=== PATIENT | male | born 1950 | race Caucasian/White ===

== ENCOUNTER → 2017-09-05 | Outpatient (CLI) | payer MEDICARE ==
[2017-09-05 14:45] LABS: ADD MAN DIFF? NO
[2017-09-05 14:53] LABS: BASO # 0.1 x10^3/uL (0.0-0.2); BASO % 1 % (0-3); EOS # 0.2 x10^3/uL (0.0-0.7); EOS % 2 % (0-3); HEMATOCRIT 44.2 % (39.0-53.0); HEMOGLOBIN 14.8 g/dL (13.0-17.5); LYMPH # 1.7 x10^3/uL (1.0-4.8); LYMPH % 21 % (24-48); MEAN CORPUSCULAR HEMOGLOBIN 32 pg (25-35); MEAN CORPUSCULAR HGB CONC 33 g/dL (31-37); MEAN CORPUSCULAR VOLUME 97 fL (79-100); MONO # 0.7 x10^3/uL (0.0-1.1); MONO % 9 % (0-9); NEUT # 5.4 x10^3uL (1.8-7.7); NEUT % 67 % (31-73); PLATELET COUNT 173 x10^3/uL (140-400); RED BLOOD COUNT 4.55 x10^6/uL (4.30-5.70); RED CELL DISTRIBUTION WIDTH 13.1 % (11.5-14.5); WHITE BLOOD COUNT 8.1 x10^3/uL (4.0-11.0)
[2017-09-05 14:55] LABS: BILIRUBIN,URINE NEGATIVE (NEG); CLARITY,URINE CLEAR; COLOR,URINE YELLOW; GLUCOSE,URINE NEGATIVE (NEG); NITRITE,URINE NEGATIVE (NEG); PROTEIN,URINE NEGATIVE (NEG-TRACE); UROBILINOGEN,URINE 0.2 mg/dL (0.2 mg/dL)
[2017-09-05 15:10] LABS: BACTERIA,URINE 0 /HPF (0-FEW); RBC,URINE 0 /HPF (0-2); SQUAMOUS EPITHELIAL CELL,UR FEW /LPF
[2017-09-05 15:17] LABS: ALBUMIN 3.5 g/dL (3.4-5.0); ALBUMIN/GLOBULIN RATIO 1.1 (1.0-1.7); ALK PHOS 96 U/L (46-116); ALT (SGPT) 23 U/L (16-63); ANION GAP 8 (6-14); AST (SGOT) 20 U/L (15-37); BLOOD UREA NITROGEN 13 mg/dL (8-26); BUN/CREATININE RATIO 14 (6-20); CALCIUM 8.7 mg/dL (8.5-10.1); CARBON DIOXIDE 27 mmol/L (21-32); CHLORIDE 107 mmol/L (98-107); CREATININE 0.9 mg/dL (0.7-1.3); GFR 84.7; GLUCOSE 114 mg/dL (70-99); POTASSIUM 4.4 mmol/L (3.5-5.1); SODIUM 142 mmol/L (136-145); TOTAL BILIRUBIN 0.3 mg/dL (0.2-1.0); TOTAL PROTEIN 6.7 g/dL (6.4-8.2)
[2017-09-05 15:18] LABS: PARTIAL THROMBOPLASTIN TIME 34 SEC (24-38); PROTHROMBIN TIME PATIENT 12.9 SEC (11.7-14.0)
[2017-09-05 15:35] LABS: ALBUMIN 3.5 g/dL (3.4-5.0); ANION GAP 9 (6-14); BLOOD UREA NITROGEN 13 mg/dL (8-26); CALCIUM 9.1 mg/dL (8.5-10.1); CARBON DIOXIDE 28 mmol/L (21-32); CHLORIDE 106 mmol/L (98-107); CREATININE 0.9 mg/dL (0.7-1.3); GFR 84.7; GLUCOSE 117 mg/dL (70-99); POTASSIUM 4.4 mmol/L (3.5-5.1); SODIUM 143 mmol/L (136-145)
[2017-09-05 16:19] LABS: SEDIMENTATION RATE 2 (0-15)
[2017-09-06 05:18] LABS: MRSA BY PCR Negative (Negative)
== END | disposition home or self-care (01) ==
LOC: SURGPAT 13:29
DX: Z01.818 Encounter for other preprocedural examination (principal); I45.10 Unspecified right bundle-branch block; R94.31 Abnormal electrocardiogram [ECG] [EKG]
CPT/HCPCS: 36415; 71046; 80048; 80053; 81001; 82040; 82306; 85025; 85610; 85651; 85730; 87086; 87641; 93005

== ENCOUNTER 2017-09-26 06:46 | Inpatient (IN) | payer MEDICARE ==
[~2017-09-26 06:46] MED LIST: CELECOXIB 200 MG CAPSULE. PO
[2017-09-26] MEDS ORDERED: VANCOMYCIN 1 GM VIAL. (06:56)
[2017-09-26] MEDS ORDERED: TOBRAMYCIN POWDER 1.2 GM VIAL. (06:56)
[2017-09-26] MEDS ORDERED: fentaNYL PF VIAL 100 MCG/2 ML VIAL IV ×3 (07:00→13:15)
[2017-09-26] MEDS ORDERED: ONDANSETRON PF 4 MG/2 ML VIAL. IV (07:00)
[2017-09-26] MEDS ORDERED: LIDOCAINE 1% PF 2 ML VIAL. ID (07:00)
[2017-09-26] MEDS: IV RINGERS,LACTATED 1000ML 1,000 ML IV (08:02)
[2017-09-26] MEDS: HYDROcodone/APAP 7.5/325MG 1 TAB TABLET PO (08:05)
[2017-09-26] MEDS ORDERED: FAMOTIDINE 20 MG/2 ML VIAL (08:55)
[2017-09-26] MEDS ORDERED: DEXAMETHASONE SOD PHOS 20 MG/5 ML VIAL. (08:55)
[2017-09-26] MEDS ORDERED: KETOROLAC 30 MG/ML INJ FOR OR. INJ (08:55)
[2017-09-26] MEDS ORDERED: LIDOCAINE 2% PF Vial for OR 5 ML VIAL. (08:55)
[2017-09-26] MEDS ORDERED: ONDANSETRON PF 4 MG/2 ML VIAL. (08:55)
[2017-09-26] MEDS ORDERED: PROPOFOL 20 ML IV (08:55)
[2017-09-26] MEDS ORDERED: NEOSTIGMINE METHYLSULFATE 5 MG/5 ML SYRINGE. ×2 (09:10→12:31)
[2017-09-26] MEDS ORDERED: GLYCOPYRROLATE 1 MG/5 ML VIAL. ×2 (09:10→12:30)
[2017-09-26] MEDS ORDERED: fentaNYL PF VIAL 100 MCG/2 ML VIAL ×3 (09:27→13:19)
[2017-09-26] MEDS ORDERED: ROCURONIUM 50 MG/5 ML VIAL. (09:27)
[2017-09-26] MEDS ORDERED: MIDAZOLAM HCL/PF 2 MG/2 ML VIAL. (09:28)
[2017-09-26] MEDS ORDERED: SUCCINYLCHOLINE 200 MG/10 ML VIAL. (11:10)
[2017-09-26] MEDS: TRANEXAMIC ACID 1,000 MG in IV NS 50ML -- 1ST BAG INJ (11:24)
[2017-09-26] MEDS ORDERED: ePHEDrine PF IN SALINE 50 MG/5 ML DISP.SYRIN IV (11:26)
[2017-09-26] MEDS: MORPHINE SULFATE 5 MG, KETOROLAC 30 MG, ROPIVacaine 0.5% PF 60 ML, EPINEPHrine 0.5 MG i... INT ART (11:34)
[2017-09-26] MEDS: TOBRAMYCIN POWDER 1.2 GM VIAL. (11:34)
[2017-09-26] MEDS: VANCOMYCIN 1 GM VIAL. (11:34)
[2017-09-26] MEDS ORDERED: hydrALAZINE 20 MG/ML VIAL. (11:39)
[2017-09-26] MEDS: TRANEXAMIC ACID 1,000 MG in IV NS 50ML -- 2ND BAG INJ (12:26)
[2017-09-26] MEDS ORDERED: DESFLURANE > 120 MINUTES IH (12:55)
[2017-09-26] MEDS ORDERED: traMADol 50 MG TABLET PO ×2 (13:15)
[2017-09-26] MEDS ORDERED: DEXTROSE 50% 25 GM / 50ML DISP.SYRIN. IV (13:15)
[2017-09-26] MEDS ORDERED: METOCLOPRAMIDE HCL 10 MG/2 ML VIAL. IV (13:15)
[2017-09-26] MEDS ORDERED: oxyCODONE/APAP 5/325 1 TAB TABLET PO (13:15)
[2017-09-26] MEDS ORDERED: MORPHINE SULFATE 4 MG/ML DISP.SYRIN. IV ×2 (13:15)
[2017-09-26] MEDS ORDERED: PROCHLORPERAZINE 10 MG/2 ML VIAL. IV (13:15)
[2017-09-26] MEDS ORDERED: MORPHINE SULFATE 10 MG/ML VIAL. IV (13:15)
[2017-09-26] MEDS ORDERED: PROCHLORPERAZINE 5 MG TABLET. PO (13:15)
[2017-09-26] MEDS ORDERED: CALCIUM CARBONATE 500 MG TAB.CHEW PO (13:15)
[2017-09-26] MEDS ORDERED: 0.9 % SODIUM CHLORIDE 10 ML DISP.SYRIN. IV (13:15)
[2017-09-26] MEDS ORDERED: diphenhydrAMINE 50 MG/ML VIAL IV (13:15)
[2017-09-26] MEDS ORDERED: HYDROcodone/APAP 7.5/325MG 1 TAB TABLET PO (13:15)
[2017-09-26] MEDS ORDERED: ACETAMINOPHEN 325 MG TABLET. PO (13:15)
[2017-09-26] MEDS: fentaNYL PF VIAL 100 MCG/2 ML VIAL IV ×2 (13:35→13:55)
[2017-09-26] MEDS: PROCHLORPERAZINE 10 MG/2 ML VIAL. IV (13:36)
[2017-09-26] MEDS: MORPHINE SULFATE 4 MG/ML DISP.SYRIN. IV ×5 (13:45→16:04)
[2017-09-26] MEDS: IV DEXTROSE 5 %-0.45 % NACL 1,000 ML IV (16:05)
[2017-09-26] MEDS ORDERED: oxyCODONE/APAP 10/325 1 TAB TABLET PO (16:15)
[2017-09-26] MEDS: FERROUS SULFATE 325 MG TABLET. PO (16:55)
[2017-09-26] MEDS: KETOROLAC 30 MG, BUPIVACAINE MPF 0.25% 20 ML, EPINEPHrine 0.5 MG in TOTAL VOLUME SYRING... INT ART (18:06)
[2017-09-26] MEDS: oxyCODONE/APAP 10/325 1 TAB TABLET PO (19:11)
[2017-09-26] MEDS: ASPIRIN ENTERIC COATED 325 MG TABLET.DR. PO (20:33)
[2017-09-26] MEDS: CELECOXIB 200 MG CAPSULE. PO (20:33)
[2017-09-26] MEDS: oxyCODONE ER 10 MG TAB.ER.12H PO ×2 (20:34→23:00)
[2017-09-26] MEDS: buPROPion SR 100 MG TABLET.SA. PO (20:35)
[2017-09-26] MEDS: rOPINIRole 0.25 MG TABLET. PO (20:35)
[2017-09-27] MEDS: IV DEXTROSE 5 %-0.45 % NACL 1,000 ML IV ×4 (01:00→23:21)
[2017-09-27] MEDS: KETOROLAC 30 MG, BUPIVACAINE MPF 0.25% 20 ML, EPINEPHrine 0.5 MG in TOTAL VOLUME SYRING... INT ART (05:55)
[2017-09-27] MEDS ORDERED: MAGNESIUM HYDROXIDE 2,400 MG/30 ML ORAL.SUSP. PO (06:00)
[2017-09-27] MEDS: PANTOPRAZOLE 40 MG TABLET.DR. PO (06:36)
[2017-09-27] MEDS: oxyCODONE/APAP 10/325 1 TAB TABLET PO ×4 (06:36→19:58)
[2017-09-27 08:22] LABS: MEAN CORPUSCULAR HEMOGLOBIN 32 pg (25-35); MEAN CORPUSCULAR HGB CONC 33 g/dL (31-37); MEAN CORPUSCULAR VOLUME 97 fL (79-100); PLATELET COUNT 130 x10^3/uL (140-400); RED BLOOD COUNT 3.69 x10^6/uL (4.30-5.70); RED CELL DISTRIBUTION WIDTH 12.9 % (11.5-14.5); WHITE BLOOD COUNT 14.6 x10^3/uL (4.0-11.0)
[2017-09-27] MEDS: MULTIVITAMIN with MINERAL TABLET. PO (08:29)
[2017-09-27] MEDS: SENNOSIDES/DOCUSATE 8.6/50MG TABLET. PO (08:29)
[2017-09-27] MEDS: ASPIRIN ENTERIC COATED 325 MG TABLET.DR. PO ×2 (08:29→19:57)
[2017-09-27] MEDS: TAMSULOSIN 0.4 MG CAP.ER.24H. PO (08:29)
[2017-09-27] MEDS: CELECOXIB 200 MG CAPSULE. PO ×2 (08:29→19:57)
[2017-09-27] MEDS: FERROUS SULFATE 325 MG TABLET. PO ×2 (08:29→17:24)
[2017-09-27] MEDS: buPROPion SR 100 MG TABLET.SA. PO ×2 (08:30→19:57)
[2017-09-27] MEDS: FLUTICASONE 50MCG/NASAL SPRAY 16GM BOTTLE. NS (08:30)
[2017-09-27] MEDS: HYDROcodone/APAP 10/325 1 TAB TABLET PO (10:32)
[2017-09-27] MEDS: oxyCODONE/APAP 7.5/325 1 TAB TABLET PO (12:57)
[2017-09-27] MEDS ORDERED: BISACODYL 10 MG SUPP.RECT. PR (16:00)
[2017-09-27] MEDS: rOPINIRole 0.25 MG TABLET. PO (19:57)
[2017-09-27] MEDS: oxyCODONE ER 10 MG TAB.ER.12H PO (21:00)
[2017-09-28] MEDS: ZOLPIDEM 5 MG TABLET. PO (00:04)
[2017-09-28] MEDS: oxyCODONE/APAP 10/325 1 TAB TABLET PO ×5 (04:09→20:11)
[2017-09-28 05:01] LABS: HEMATOCRIT 34.4 % (39.0-53.0); MEAN CORPUSCULAR HGB CONC 35 g/dL (31-37)
[2017-09-28] MEDS: CELECOXIB 200 MG CAPSULE. PO ×2 (08:24→20:11)
[2017-09-28] MEDS: oxyCODONE ER 10 MG TAB.ER.12H PO ×2 (08:24)
[2017-09-28] MEDS: PANTOPRAZOLE 40 MG TABLET.DR. PO (08:24)
[2017-09-28] MEDS: FERROUS SULFATE 325 MG TABLET. PO ×2 (08:24→16:16)
[2017-09-28] MEDS: buPROPion SR 100 MG TABLET.SA. PO ×2 (08:24→20:11)
[2017-09-28] MEDS: SENNOSIDES/DOCUSATE 8.6/50MG TABLET. PO (08:24)
[2017-09-28] MEDS: MULTIVITAMIN with MINERAL TABLET. PO (08:24)
[2017-09-28] MEDS: TAMSULOSIN 0.4 MG CAP.ER.24H. PO (08:24)
[2017-09-28] MEDS: ASPIRIN ENTERIC COATED 325 MG TABLET.DR. PO ×2 (08:25→20:12)
[2017-09-28] MEDS: FLUTICASONE 50MCG/NASAL SPRAY 16GM BOTTLE. NS (08:30)
[2017-09-28] MEDS: IV DEXTROSE 5 %-0.45 % NACL 1,000 ML IV (16:07)
[2017-09-28] MEDS: OXYBUTYNIN CHLORIDE 5 MG TABLET PO ×2 (16:16→20:11)
[2017-09-28] MEDS: rOPINIRole 0.25 MG TABLET. PO (20:11)
[2017-09-29] MEDS: oxyCODONE/APAP 10/325 1 TAB TABLET PO ×4 (00:11→12:04)
[2017-09-29] MEDS: PANTOPRAZOLE 40 MG TABLET.DR. PO (06:34)
[2017-09-29] MEDS: buPROPion SR 100 MG TABLET.SA. PO (07:57)
[2017-09-29] MEDS: MULTIVITAMIN with MINERAL TABLET. PO (07:57)
[2017-09-29] MEDS: FLUTICASONE 50MCG/NASAL SPRAY 16GM BOTTLE. NS (07:57)
[2017-09-29] MEDS: ASPIRIN ENTERIC COATED 325 MG TABLET.DR. PO (07:57)
[2017-09-29] MEDS: CELECOXIB 200 MG CAPSULE. PO (07:57)
[2017-09-29] MEDS: OXYBUTYNIN CHLORIDE 5 MG TABLET PO (07:58)
[2017-09-29] MEDS: FERROUS SULFATE 325 MG TABLET. PO (07:58)
[2017-09-29] MEDS: TAMSULOSIN 0.4 MG CAP.ER.24H. PO (07:58)
[2017-09-29] MEDS: SENNOSIDES/DOCUSATE 8.6/50MG TABLET. PO (07:58)
[2017-09-29 09:16] LABS: HEMATOCRIT 33.9 % (39.0-53.0); HEMOGLOBIN 11.5 g/dL (13.0-17.5); MEAN CORPUSCULAR HGB CONC 34 g/dL (31-37)
== END 2017-09-29 15:10 | disposition home or self-care (01) | DRG 470 ==
LOC: OPSVCIP 06:46 → 4 SOUTHEST 14:47
PROC: 0SRD0J9 Replacement of Left Knee Joint with Synthetic Substitute, Cemented, Open Approach (ICD-10-PCS; principal; 2017-09-26 09:45)
DX: M17.12 Unilateral primary osteoarthritis, left knee (principal); F32.9 Major depressive disorder, single episode, unspecified; I10 Essential (primary) hypertension; K21.9 Gastro-esophageal reflux disease without esophagitis; Z96.651 Presence of right artificial knee joint; Z82.3 Family history of stroke; Z83.3 Family history of diabetes mellitus; Z85.828 Personal history of other malignant neoplasm of skin; Z90.49 Acquired absence of other specified parts of digestive tract; Z87.891 Personal history of nicotine dependence; Z91.048 Other nonmedicinal substance allergy status
CPT/HCPCS: 36415; 73560; 85014; 85018; 85027; 86850; 86900; 86901; 94660; 97116-GP; 97150-GP; 97162-GP; 97166-GO; 97530-GP; 97535-GO; A7015; C1713; J0171; J0330; J0360; J0690; J0780; J1100; J1885; J2250; J2270; J2405; J2704; J2710; J2795; J3010; J3260; J3370; J3490; J7030; J7120; S0028

== ENCOUNTER → 2018-05-16 | Outpatient (CLI) | payer MEDICARE ==
[2017-09-29 14:33] VITALS: BP 130/71
[~2018-05-16] MED LIST changes: +ASPI-252 PO; +ASPI-482 PO; +ASPI-630 PO; +BUPR200T PO; +CELE200C PO; -CELECOXIB 200 MG CAPSULE. PO; +FERR325T14 PO; +FLUT9.9S NS; +GADOBUTROL 7.5 MMOL/7.5 ML VIAL IV ONE; +GUAI12003 PO; +MORP30TA PO; +NABU750T PO; +NORT25CA PO; +OMEP20CA9 PO; +OXYC10TA PO; +OXYC1TAB22 PO; +OXYC20TA34 PO; +OXYC40TA21 PO; +ROPI0.5T2 PO; +TAMS0.4C2 PO; +TEST75PE6 IL
--- NOTE | 2018-05-16 13:26 | KCIC ---
MRI Lumbar Spine without and with contrast History: Left sciatica, left knee pain, previous back surgeries, new onset left leg and knee pain the last 2-3 weeks Technique: Multiplanar, multi sequential pre and postcontrast MR imaging was performed of the lumbar spine. Comparison: April 05, [address] exam Findings: There is mild motion. Lumbar vertebral body stature is maintained. There is new minimal grade 1 anterior spondylolisthesis L3-4. There is again moderate to severe degenerative disc disease L5-S1 and to lesser degree at L4-5. There is minimal L3-4 degenerative disc disease greater than previously. Conus terminates at L1. There is no nodular enhancement of the conus or cauda equina, no enhancement in the intervertebral disc spaces. There is no significant marrow edema of the vertebral bodies, minimal edema associated with the left L4 superior facet articular process likely reactive/degenerative in etiology. L1-L2, L2-L3: These levels were not included on the axial images. Neural foramina and spinal canal are adequate. L3-L4: There is moderate to severe buckling of the ligamentum flavum relatively greater than previously. There is also moderate to severe facet degenerative change as seen previously, some fluid in the facet articulations. There is increased mild narrowing of the far lateral recesses bilaterally. There is very mild narrowing of the anterior left neural foramen, right neural foramen overall adequate. L4-L5: There is moderate facet hypertrophic change. There is left laminectomy defect. There is mild buckling of the ligamentum flavum on the right. There is posterior disc osteophyte complex and bulge, mild indentation upon the ventral thecal sac. There is very mild narrowing of the far right lateral recess. While near, there is no significant displacement of the descending L5 nerve roots. There is mild neural foramina compromise bilaterally. L5-S1: There is negligible disc osteophyte complex. Spinal canal is adequate. There is mild facet degenerative change. There is again mild narrowing of the left neural foramen, right neural foramen not significantly narrowed. Impression: 1. Comparing with 2006 CT exam, there is now minimal grade 1 anterior spondylolisthesis L3-4 with increased mild narrowing of the far lateral recesses bilaterally at this level. Disc osteophyte complex and bulge at L4-5 is near the descending L5 nerve roots without impingement, minimal narrowing of the right lateral recess at this level. There is mild neural foramina compromise bilaterally at L4-5 and on the left at L5-S1 and L3-4. There is again degenerative disc disease greatest at L5-S1, to lesser degree at L4-5, minimally at L3-4. Electronically signed by: Sergey Redd MD (05/16/2018 1:23 PM) [facility]
== END | disposition home or self-care (01) ==
LOC: KCIC MRI 10:02
PROVIDERS: ATTEND Orthopaedic Surgery
DX: M51.17 Intervertebral disc disorders with radiculopathy, lumbosacral region (principal); M43.16 Spondylolisthesis, lumbar region; M25.78 Osteophyte, vertebrae
CPT/HCPCS: 72158; 82565; A9585

== ENCOUNTER → 2018-06-11 | Outpatient (CLI) | payer MEDICARE ==
[~2018-06-11] MED LIST changes: +CONTRAST GIVEN. MC PRN; +DOCU-109 PO; +ESOM40CA PO; -GADOBUTROL 7.5 MMOL/7.5 ML VIAL IV ONE; +GUAI-108 PO; +IOHEXOL 180 MG/ML 10 ML VIAL. IJ ONE; +LIDOCAINE WITH 8.4% SOD BICARB 3 ML DISP.SYRIN. INJ ONE; +METH750T2 PO; +MODA100T26 PO; +OMEP20CA10 PO; -OMEP20CA9 PO; +OXYC5CAP PO
[2018-06-11 14:15] VITALS: BP 143/74
[2018-06-11 14:30] VITALS: BP 120/66
[2018-06-11 14:45] VITALS: BP 144/74
--- NOTE | 2018-06-11 14:50 | NUR ---
Discharge Pt completed post myelogram recovery, VSS, dressing dry and intact, able to tolerate PO. DC instructions reinforced. Pt escorted out per wheelchair, to drive. BETO STINSON
--- NOTE | 2018-06-14 08:43 | RAD ---
Lumbar myelogram, 06/11/2018: History: Left leg and back pain Under local anesthesia, aseptic conditions and fluoroscopic guidance a lumbar puncture was performed at the L2-3 level utilizing a 25-gauge Jacqueline spinal needle. Good clear CSF flow was obtained following which 15 cc of Omnipaque 180 was injected into the thecal sac. The spinal needle was then removed and appropriate digital imaging performed. 2.9 minutes of fluoroscopy time was utilized. 14 fluoroscopic spot images were recorded. The patient tolerated the procedure well and was sent to CT in good condition. The following findings were delineated on the myelogram: 1. There are moderate anterior extradural defects at L3-4, L4-5 and to lesser degree at L5-S1. There are additional mild posterior extradural defects at L3-4 and L4-5. 2. Upright lateral flexion and extension views show slight anterolisthesis at L3-4, best demonstrated on the flexion view. 3. There is symmetric opacification of the nerve root sleeves in the lower lumbar spine. CT of the lumbar spine-post myelogram, 06/11/2018: Multidetector CT imaging was performed with multiplanar reconstructions produced. The following findings are delineated: 1. No fracture or destructive bony lesion is seen. In the supine position for the CT study there is no significant spondylolisthesis. 2. No significant posterior disc bulge or protrusion is seen at L1-2 or L2-3. The central spinal canal and neural foramina are well maintained. There is mild facet joint arthropathy at these levels. 3. At L3-4 there is extensive facet joint arthropathy with vacuum disc phenomena and prominent posterior ligamentous thickening. There is moderate broad-based posterior disc bulging. The combination of findings is causing moderate central spinal stenosis at this level. There is mild to moderate inferior foraminal narrowing bilaterally at this level. 4. At L4-5 there is moderate facet joint arthropathy with posterior ligamentous thickening. There is mild posterior marginal spurring and moderate broad-based posterior disc bulging. There is borderline narrowing of the thecal sac, more so on the right and mild inferior foraminal narrowing bilaterally at this level. 5. At L5-S1 there is disc space narrowing with a vacuum disc phenomena and moderate marginal spurring. There are mild degenerative changes involving the facet joints. The central spinal canal is well maintained. The spurring is causing mild bilateral foraminal encroachment. 6. There is a 3 cm right renal cyst. IMPRESSION: 1. Moderate multilevel degenerative change as described above. 2. Extensive facet joint arthropathy at L3-4 with slight anterolisthesis in the upright position with flexion, which in conjunction with moderate posterior disc bulging is causing moderate central spinal stenosis at this level. 3. Borderline central spinal stenosis at L4-5. PQRS Compliance Statement: One or more of the following individualized dose reduction techniques were utilized for this examination: 1. Automated exposure control 2. Adjustment of the mA and/or kV according to patient size 3. Use of iterative reconstruction technique DICTATED and SIGNED BY: ZEB GARCIA MD DATE: 06/11/18 1608 [facility]
== END | disposition home or self-care (01) ==
LOC: RAD 14:54
PROVIDERS: ATTEND Neurological Surgery
DX: M48.061 Spinal stenosis, lumbar region without neurogenic claudication (principal); M12.88 Other specific arthropathies, not elsewhere classified, other specified site; N28.1 Cyst of kidney, acquired
CPT/HCPCS: 72132; 72265; Q9965

== ENCOUNTER → 2018-07-05 | Outpatient (CLI) | payer MEDICARE ==
[2018-06-11 14:45] VITALS: BP 144/74
[~2018-07-05] MED LIST changes: -CONTRAST GIVEN. MC PRN; -DOCU-109 PO; -ESOM40CA PO; -GUAI-108 PO; -IOHEXOL 180 MG/ML 10 ML VIAL. IJ ONE; -LIDOCAINE WITH 8.4% SOD BICARB 3 ML DISP.SYRIN. INJ ONE; -METH750T2 PO; -MODA100T26 PO; -OMEP20CA10 PO; +OMEP20CA9 PO
[2018-07-05 14:25] LABS: BASO # 0.1 x10^3/uL (0.0-0.2); BASO % 1 % (0-3); EOS # 0.2 x10^3/uL (0.0-0.7); EOS % 2 % (0-3); HEMATOCRIT 42.8 % (39.0-53.0); HEMOGLOBIN 13.8 g/dL (13.0-17.5); LYMPH # 2.6 x10^3/uL (1.0-4.8); LYMPH % 26 % (24-48); MEAN CORPUSCULAR HEMOGLOBIN 31 pg (25-35); MEAN CORPUSCULAR HGB CONC 32 g/dL (31-37); MEAN CORPUSCULAR VOLUME 97 fL (79-100); MONO % 9 % (0-9); NEUT # 6.4 x10^3uL (1.8-7.7); NEUT % 63 % (31-73); PLATELET COUNT 184 x10^3/uL (140-400); RED BLOOD COUNT 4.42 x10^6/uL (4.30-5.70); WHITE BLOOD COUNT 10.2 x10^3/uL (4.0-11.0)
[2018-07-05 14:52] LABS: ALBUMIN 3.3 g/dL (3.4-5.0); ALBUMIN/GLOBULIN RATIO 0.9 (1.0-1.7); CALCIUM 8.8 mg/dL (8.5-10.1); CREATININE 1.1 mg/dL (0.7-1.3); GFR 67.2; POTASSIUM 4.4 mmol/L (3.5-5.1); TOTAL BILIRUBIN 0.3 mg/dL (0.2-1.0)
== END | disposition home or self-care (01) ==
LOC: SURGPAT 13:38
PROVIDERS: ATTEND Neurological Surgery
DX: Z01.812 Encounter for preprocedural laboratory examination (principal); M54.16 Radiculopathy, lumbar region; M48.061 Spinal stenosis, lumbar region without neurogenic claudication
CPT/HCPCS: 36415; 80053; 85025; 87641

== ENCOUNTER 2018-07-12 08:41 | Observation (INO) | payer MEDICARE ==
--- NOTE | 2018-07-11 15:08 | PREOP HP ---
DATE OF SERVICE: 07/12/2018 HISTORY OF PRESENT ILLNESS: The patient is a pleasant 67-year-old who has undergone 4 previous lumbar spine surgeries, most recently by me in 2012. He currently has a problem with low back pain and pain which radiates into his left hip and left anterior thigh and then with standing and walking severe pain, which radiates into his leg down to his left ankle. He says his left leg can buckle if he is up for a long time. He uses a cane now to help prevent that. The problem started in 02/2018. It began spontaneously. He rates his pain as an 8/10. Sitting or lying on the left side makes the problem worse. Lying on the right side seems to help. He has been taking oxycodone. PHYSICAL EXAMINATION: NEUROSURGERY EXAMINATION: GENERAL APPEARANCE: Alert, pleasant, no acute distress. HEAD: Normocephalic and atraumatic. SKIN: Warm and dry. Well-healed lumbar incision. MUSCULOSKELETAL: Lumbar paraspinal muscle bulk is normal, restricted range of motion of the lumbar spine, [id number] tenderness of the lower lumbar spine with palpation, normal range of motion of the lower extremities bilaterally. EXTREMITIES: No clubbing, cyanosis or edema. NEUROLOGIC: Alert and oriented x3, normal recent and remote memory, strength 5/5 in bilateral lower extremities. Sensory intact to light touch in bilateral lower extremities except for decrease in sensation in the anterior lateral left thigh, reflexes are present and symmetric in the lower extremities bilaterally, negative straight leg raising bilaterally, uses cane to help with ambulation. IMAGING: Reviewed. I reviewed a lumbar myelogram, post-myelogram CT scan. On that study, there are postoperative changes at L4-L5 and L5-S1. At L3-L4, there is moderate central canal stenosis and moderate inferior foraminal narrowing. ASSESSMENT: 1. Spinal stenosis, lumbar region with neurogenic claudication. 2. Radiculopathy, lumbar region. 3. Low back pain. PLAN: I believe there is stenosis and lateral recess and foraminal narrowing at L3-L4 that is responsible for his left leg pain. I recommended a lumbar laminectomy from a left direct approach at that level. We did discuss the surgery and the risks. He understands. He would like to go ahead. We will make the arrangements. VIKRAM JESUS MD DR: OCTAVIO/cyndie JOB#: [id number] / [id number]
[~2018-07-12] VITALS: Ht 195.6 cm; Wt 122.9 kg
[2018-07-12] VITALS (15 sets, daily range): BP systolic 127–170; BP diastolic 63–98
[~2018-07-12 08:41] MED LIST changes: +BACITRACIN 50,000 UNIT in IV NORMAL SALINE 1000ML BAG 1,000 ML IRR ONE; +BUPIVAC MPF-EPI 0.5%-1:200000 30 ML VIAL. ONE; +GELATIN SPONGE SIZE 100. ONE; +HYDROmorphone 2 MG/ML VIAL IV PRN; +IV RINGERS,LACTATED 1000ML 1,000 ML IV SCH; +KETOROLAC 60 MG/2 ML INJ FOR OR. ONE; +LIDOCAINE 1% PF 2 ML VIAL. ID PRN; +MORPHINE SULFATE 4 MG/ML VIAL. IV PRN; +ONDANSETRON PF 4 MG/2 ML VIAL. IV PRN; +PROCHLORPERAZINE 10 MG/2 ML VIAL. IV PRN; +THROMBIN TOPICAL 20,000 UNIT SPRAY.SYRN KIT TP ONE; +ceFAZolin SODIUM 3 GM in IV DEXTROSE 5% 100ML 100 ML IV PRN; +fentaNYL PF VIAL 100 MCG/2 ML VIAL IV PRN
[2018-07-12] MEDS: fentaNYL PF VIAL 100 MCG/2 ML VIAL IV PRN ×4 (09:36→15:03)
[2018-07-12] MEDS ORDERED: fentaNYL PF VIAL 100 MCG/2 ML VIAL ONE ×3 (09:54→15:05)
[2018-07-12] MEDS ORDERED: DEXAMETHASONE SOD PHOS 20 MG/5 ML VIAL. ONE (09:54)
[2018-07-12] MEDS ORDERED: ROCURONIUM 50 MG/5 ML VIAL. ONE (09:54)
[2018-07-12] MEDS ORDERED: FAMOTIDINE 20 MG/2 ML VIAL ONE (09:54)
[2018-07-12] MEDS ORDERED: LIDOCAINE 2% PF Vial for OR 5 ML VIAL. ONE (09:54)
[2018-07-12] MEDS ORDERED: PROPOFOL 20 ML IV ONE (09:54)
[2018-07-12] MEDS ORDERED: MIDAZOLAM HCL/PF 2 MG/2 ML VIAL. ONE (09:54)
[2018-07-12] MEDS ORDERED: REMIFENTANIL 2 MG VIAL. IV ONE (09:54)
[2018-07-12] MEDS ORDERED: ONDANSETRON PF 4 MG/2 ML VIAL. ONE ×2 (09:54→12:21)
[2018-07-12] MEDS ORDERED: GLYCOPYRROLATE 1 MG/5 ML VIAL. ONE (12:21)
[2018-07-12] MEDS ORDERED: NEOSTIGMINE 10 MG/10 ML VIAL. ONE (12:21)
[2018-07-12] MEDS ORDERED: PROPOFOL 0 ML IV ONE (13:21)
[2018-07-12] MEDS ORDERED: PROPOFOL 50 ML IV ONE ×2 (13:21)
--- NOTE | 2018-07-12 14:06 | DISCH ---
DISCHARGE INSTRUCTIONS Condition on Discharge Condition on Discharge: Stable Activity After Discharge Activity Instructions for Disc: Activity as tolerated, Avoid exertion Other activity instructions: no driving for a week Bathing Instructions: Shower-keep dressing dry, No Tub Bath until see Lifting Instructions after Dis: No heavy lifting, No pulling or pushing Exercise Instruction after Dis: Exercise per therapy Driving Instructions after Dis: Do not drive Weight Bearing Status after Di: Full weight bearing Diet after Discharge Diet after Discharge: Regular Diet Texture: Regular Wound Incision Care Wound/Incision Care: Ice to area for comfort Other wound/incision instructi: may remove dressing in 48 hrs if dry then may shower, no soaking Contacting the after DC Call your doctor for: Concerns you may have Follow-Up Follow up with: Dr. Jesus's nurse in 2 weeks [phone] Treatment/Equipment after DC Adaptive Equipment Issued: None VIKRAM JESUS MD Jul 12, 2018 14:06
[2018-07-12] MEDS ORDERED: DOCU-109 PO (14:09)
--- NOTE | 2018-07-12 14:28 | OP ---
DATE OF SURGERY: 07/12/2018 PREOPERATIVE DIAGNOSES: Lateral recess stenosis, L3-L4 left with left lumbar radiculopathy. 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 OPERATION PERFORMED: Hemilaminotomy with microdecompression of dura and nerve root, L3-L4 left. The operation was done with EMG monitoring, fluoroscopy, microscopic dissection. SIZER MACHINE: PALOMA Lind assisted with the surgery. She assisted with the exposure, the microdecompression as well as the closure. OPERATIVE INDICATIONS: The patient is a pleasant 67-year-old man who in the past has undergone 4 previous surgeries, most recently in 2013. He then developed pain in the left side of his lower back, which radiated into his left anterior thigh and on imaging studies there was lateral recess stenosis seen and a small spondylolisthesis at this level. I have recommended a microdecompression to see if this would decompress the nerve root and help him with his pain. He understood the surgery, the risks, technique and expected postoperative course and wished to go ahead. DESCRIPTION OF PROCEDURE: Following general endotracheal anesthesia, the patient was positioned prone on the Gustavo table. Lumbar region prepped and draped in standard fashion. LEE hose and AV impulse boots were applied for DVT prophylaxis. The microscope was draped. Fluoroscopy was draped and brought into field. Monitoring was established. Ancef 3 grams was given less than 1 hour prior to initiation of surgery. Using fluoroscopic guidance, a midline incision was made directly over the L3-L4 interspace. I dissected down through skin and subcutaneous tissue and reflected the paraspinal muscles and placed a [place] micro disk retractor, brought in the microscope during this time and the remainder of surgery done with a microscope using microscopic technique. Confirming my position fluoroscopically, I removed scar from the lamina and exposed the lamina of L4 and L3. I then brought in the high speed air drill and I burred down a generous hemilaminotomy and a partial foraminotomy. I have peeled away some ligamentum flavum, but then the ligament was densely adherent and partially calcified to the lateral dura appearing much like an old synovial cyst and the scar was exuberant and dense. I gently developed a plane between the dura and the underlying hypertrophic ligament and scar and gently and carefully peeled this material away. I retracted the root medially. There was a large epidural vein beneath the root, which I coagulated. The disk was very firm and no diskectomy was warranted at this point, then I had an excellent decompression. The root was mobile up the thickened ligament, which had been scarred down to the dura had been removed. I irrigated copiously with antibiotic solution. I then again worked for careful hemostasis, but hemostasis was never a problem throughout the case. I did use small amounts of bone wax, bipolar cautery also used judiciously. I removed the retractors and I irrigated copiously again and confirmed hemostasis, closed the wound in layers with absorbable suture, skin closed with 4-0 subcuticular stitch. The operation went very well and the patient was awakened uneventfully. I was quite pleased with the surgery. VIKRAM JESUS MD DR: OCTAVIO/cyndie JOB#: [id number] / [id number]
[2018-07-12] MEDS ORDERED: MAGNESIUM HYDROXIDE 2,400 MG/30 ML ORAL.SUSP. PO PRN (16:30)
[2018-07-12] MEDS ORDERED: 0.9 % SODIUM CHLORIDE 10 ML DISP.SYRIN. IV PRN (16:30)
[2018-07-12] MEDS ORDERED: MAG HYDROX/ALUMINUM HYD/SIMETH 30 ML ORAL.SUSP PO PRN (16:30)
[2018-07-12] MEDS ORDERED: CALCIUM CARBONATE 500 MG TAB.CHEW PO PRN (16:30)
[2018-07-12] MEDS ORDERED: fentaNYL PF VIAL 100 MCG/2 ML VIAL IV PRN (16:30)
[2018-07-12] MEDS ORDERED: diphenhydrAMINE HCL 25 MG CAPSULE PO PRN (16:30)
[2018-07-12] MEDS ORDERED: NALOXONE 0.4 MG/ML VIAL. IV PRN (16:30)
[2018-07-12] MEDS ORDERED: ACETAMINOPHEN 325 MG TABLET. PO PRN (16:30)
[2018-07-12] MEDS ORDERED: POTASSIUM CL 20MEQ D5-0.45NACL 1,000 ML IV SCH (17:00)
[2018-07-12] MEDS ORDERED: rOPINIRole 0.25 MG TABLET. PO SCH (21:00)
[2018-07-12] MEDS: DOCUSATE SODIUM 100 MG CAPSULE. PO SCH (21:10)
[2018-07-12] MEDS: buPROPion SR 100 MG TABLET.SA. PO SCH (21:10)
[2018-07-12] MEDS: METHOCARBAMOL 750 MG TABLET PO SCH (21:10)
[2018-07-12] MEDS: MORPHINE ER 30 MG TABLET.ER PO SCH (21:11)
[2018-07-13] MEDS: oxyCODONE IR 5 MG TABLET PO PRN ×3 (02:09→12:33)
[2018-07-13 03:00] VITALS: BP 135/75
[2018-07-13 07:00] VITALS: BP 128/72
[2018-07-13] MEDS: METHOCARBAMOL 750 MG TABLET PO SCH ×2 (07:24→12:32)
[2018-07-13] MEDS: buPROPion SR 100 MG TABLET.SA. PO SCH (07:24)
[2018-07-13] MEDS: DOCUSATE SODIUM 100 MG CAPSULE. PO SCH (07:24)
[2018-07-13] MEDS ORDERED: PANTOPRAZOLE 40 MG TABLET.DR. PO SCH (07:30)
[2018-07-13] MEDS: MORPHINE ER 30 MG TABLET.ER PO SCH (08:51)
[2018-07-13] MEDS ORDERED: TAMSULOSIN 0.4 MG CAP.ER.24H. PO SCH (09:00)
[2018-07-13] MEDS ORDERED: MELOXICAM 7.5 MG TABLET PO SCH (09:00)
[2018-07-13] MEDS ORDERED: FLUTICASONE 50MCG/NASAL SPRAY 16GM BOTTLE. NS SCH (09:00)
[2018-07-13 11:00] VITALS: BP 142/82
[2018-07-13] MEDS ORDERED: METH750T2 PO (12:21)
--- NOTE | 2018-07-13 18:06 | PATHOLOGY ---
[facility] Accession Number: [id number] . 01 Material submitted: . LUMBAR DECOMPRESSION . 01 Clinical history: . Lumbar stenosis, radiculopathy . 02 Diagnosis: Segments of fibrocartilaginous, fibroadipose, and skeletal muscle tissue and bone, lumbar decompression: - Degenerative changes of fibrocartilaginous tissue. (JPM:brush operator; 07/13/2018) MBR/07/13/2018 . 02 Comment: There is no evidence of an acute inflammatory process or malignancy. (JPM:brush operator; 07/13/2018) . 02 Electronically signed: . Gallo Mueller MD, Pathologist NPI- [id number] . 01 Gross description: . Received in formalin labeled "Kristopher Douglass, lumbar decompression," are several pieces of glistening, fibrous tissue measuring 3.9 x 2.5 x 0.9 cm in aggregate dimensions, containing small fragments of possible bone. The tissue submitted representatively in cassette A1, following decalcification. (TSD; 07/12/2018) TOB/TOB . 02 Pathologist provided ICD-10: M51.36 . 02 CPT . 228811, [id number] Specimen Comment: A courtesy copy of this report has been sent to Specimen Comment: [phone], . Specimen Comment: Report sent to / DR ABEBE Performed at: 01 [facility] [address], [place] [id number] MD Zacarias Pennington MD Phone: [phone] Performed at: 02 [facility] [address] [place], [place] [id number] MD Gallo Mueller MD Phone: [phone]
== END 2018-07-13 13:00 | disposition home or self-care (01) ==
LOC: SURG 08:41 → 4 NORTH 16:46
PROVIDERS: ADMIT Neurological Surgery; ATTEND Neurological Surgery
DX: M48.062 Spinal stenosis, lumbar region with neurogenic claudication (principal); M43.10 Spondylolisthesis, site unspecified; M54.16 Radiculopathy, lumbar region
CPT/HCPCS: 63047; 76000; 97116; 97162; 97530; A7015; G0378; G0379; G8978; G8979; G8980; J1100; J1885; J2001; J2250; J2405; J2704; J2710; J3010; J3490; J7030; J7120

== ENCOUNTER 2018-10-02 05:54 | Inpatient (IN) | payer MEDICARE ==
[2018-10-02] VITALS (10 sets, daily range): BP systolic 120–146; BP diastolic 70–88
[~2018-10-02] VITALS: Ht 193 cm; Wt 90.7 kg
[~2018-10-02 05:54] MED LIST changes: -BACITRACIN 50,000 UNIT in IV NORMAL SALINE 1000ML BAG 1,000 ML IRR ONE; -BUPIVAC MPF-EPI 0.5%-1:200000 30 ML VIAL. ONE; +DOCU-109 PO; +ESOM40CA PO; -GELATIN SPONGE SIZE 100. ONE; +GUAI-108 PO; -HYDROmorphone 2 MG/ML VIAL IV PRN; -IV RINGERS,LACTATED 1000ML 1,000 ML IV SCH; -KETOROLAC 60 MG/2 ML INJ FOR OR. ONE; -LIDOCAINE 1% PF 2 ML VIAL. ID PRN; +METH750T2 PO; +MODA100T26 PO; -MORPHINE SULFATE 4 MG/ML VIAL. IV PRN; +OMEP20CA10 PO; -OMEP20CA9 PO; -ONDANSETRON PF 4 MG/2 ML VIAL. IV PRN; -PROCHLORPERAZINE 10 MG/2 ML VIAL. IV PRN; -THROMBIN TOPICAL 20,000 UNIT SPRAY.SYRN KIT TP ONE; -ceFAZolin SODIUM 3 GM in IV DEXTROSE 5% 100ML 100 ML IV PRN; -fentaNYL PF VIAL 100 MCG/2 ML VIAL IV PRN
[2018-10-02] MEDS ORDERED: BUPIVACAINE-EPI 0.25%-1:200000 MPF 30 ML VIAL. ONE (05:56)
[2018-10-02] MEDS ORDERED: MORPHINE SULFATE 5 MG, KETOROLAC 30MG VIAL 30 MG, ROPIVacaine 0.5% PF 60 ML, EPINEPHrin... INT ART ONE ×5 (06:00)
[2018-10-02 06:58] LABS: BASO # 0.1 x10^3/uL (0.0-0.2); BASO % 1 % (0-3); EOS # 0.5 x10^3/uL (0.0-0.7); EOS % 7 % (0-3); HEMOGLOBIN 14.4 g/dL (13.0-17.5); LYMPH # 3.6 x10^3/uL (1.0-4.8); LYMPH % 47 % (24-48); MEAN CORPUSCULAR HEMOGLOBIN 31 pg (25-35); MEAN CORPUSCULAR HGB CONC 32 g/dL (31-37); MEAN CORPUSCULAR VOLUME 98 fL (79-100); MONO # 0.9 x10^3/uL (0.0-1.1); MONO % 12 % (0-9); NEUT # 2.6 x10^3uL (1.8-7.7); NEUT % 34 % (31-73); PLATELET COUNT 167 x10^3/uL (140-400); RED BLOOD COUNT 4.61 x10^6/uL (4.30-5.70); RED CELL DISTRIBUTION WIDTH 15.1 % (11.5-14.5); WHITE BLOOD COUNT 7.7 x10^3/uL (4.0-11.0)
[2018-10-02] MEDS ORDERED: IV RINGERS,LACTATED 1000ML 1,000 ML IV SCH (07:00)
[2018-10-02] MEDS ORDERED: PROCHLORPERAZINE 10 MG/2 ML VIAL. IV PRN (07:00)
[2018-10-02] MEDS ORDERED: HYDROmorphone 2 MG/ML VIAL IV PRN (07:00)
[2018-10-02] MEDS ORDERED: ONDANSETRON PF 4 MG/2 ML VIAL. IV PRN (07:00)
[2018-10-02] MEDS ORDERED: fentaNYL PF VIAL 100 MCG/2 ML VIAL IV PRN ×3 (07:00→11:15)
[2018-10-02] MEDS ORDERED: PROPOFOL 20 ML IV ONE (07:06)
[2018-10-02] MEDS ORDERED: LIDOCAINE 2% PF 5 ML VIAL. ONE (07:06)
[2018-10-02] MEDS ORDERED: ROCURONIUM 50 MG/5 ML VIAL. ONE (07:07)
[2018-10-02] MEDS ORDERED: DEXAMETHASONE SOD PHOS 20 MG/5 ML VIAL. ONE (07:11)
[2018-10-02] MEDS ORDERED: MIDAZOLAM HCL/PF 2 MG/2 ML VIAL. ONE (07:11)
[2018-10-02] MEDS ORDERED: fentaNYL PF VIAL 100 MCG/2 ML VIAL ONE ×2 (07:11→10:39)
[2018-10-02] MEDS ORDERED: ONDANSETRON PF 4 MG/2 ML VIAL. ONE (07:11)
[2018-10-02 07:12] LABS: PROTHROMBIN TIME PATIENT 12.9 SEC (11.7-14.0)
--- NOTE | 2018-10-02 07:49 | PDOC1 ---
History and Physical Date of Admission Date of Admission DATE: 10/02/18 TIME: 07:44 Identification/Chief Complaint Chief Complaint posterior left knee pain, loose body Source Source: Chart review, Patient History of Present Illness History of Present Illness 68-year-old man who had left total knee arthroplasty by me on 09/26/2017. Went to PCP who ordered Doppler, MRI and plain film xrays that showed a mass on the back of the knee that requires surgery. He has local pain from the mass effect and occasional symptoms into the ankle and foot. The knee replacement did not seem to help this symptom. He would like excision of the bony mass, loose body posterior to the knee Past Medical History Cardiovascular: HTN GI: GERD Heme/Onc: Cancer Psych: Depression Past Surgical History Past Surgical History: Appendectomy, Arthroscopy, Total knee replacement Family History Family History: Cancer, Diabetes, Heart Disease, Stroke Social History ALCOHOL: none Drugs: None Current Medications Current Medications Current Medications Morphine Sulfate 5 mg/Ketorolac Tromethamine 30 mg/Ropivacaine 60 ml/Epinephrine HCl 0.5 mg/Sodium Chloride 100 ml @ 100 mls/hr 1X ONCE INT ART ; Start 10/02/18 at 06:00; Stop 10/02/18 at 06:59; Status DC Ondansetron HCl (Zofran) 4 mg PRN Q6HRS PRN IV NAUSEA/VOMITING; Start 10/02/18 at 07:00; Stop 10/03/18 at 06:59 Fentanyl Citrate (Fentanyl 2ml Vial) 25 mcg PRN Q5MIN PRN IV MILD PAIN; Start 10/02/18 at 07:00; Stop 10/03/18 at 06:59 Fentanyl Citrate (Fentanyl 2ml Vial) 50 mcg PRN Q5MIN PRN IV MODERATE TO SEVERE PAIN; Start 10/02/18 at 07:00; Stop 10/03/18 at 06:59 Morphine Sulfate (Morphine Sulfate) 1 mg PRN Q10MIN PRN IV SEVERE PAIN; Start 10/02/18 at 07:00; Stop 10/03/18 at 06:59 Ringer's Solution 1,000 ml @ 30 mls/hr Q24H IV Last administered on 10/02/18at 06:44; Start 10/02/18 at 07:00; Stop 10/02/18 at 18:59 Hydromorphone HCl (Dilaudid) 0.5 mg PRN Q10MIN PRN IV SEV PAIN, Second choice; Start 10/02/18 at 07:00; Stop 10/03/18 at 06:59 Prochlorperazine Edisylate (Compazine) 5 mg PACU PRN PRN IV NAUSEA, MRX1; Start 10/02/18 at 07:00; Stop 10/03/18 at 06:59 Cefazolin Sodium/ Dextrose 50 ml @ 100 mls/hr 1X PREOP PRN IV PRIOR TO PROCEDURE; Start 10/02/18 at 06:00; Stop 10/02/18 at 18:00 Bupivacaine HCl/ Epinephrine Bitart (Sensorcaine-Epi 0.25%-1:824851 Mpf) 30 ml STK-MED ONCE .ROUTE ; Start 10/02/18 at 05:56; Stop 10/02/18 at 06:56; Status DC Lidocaine HCl (Lidocaine Pf 2% Vial) 5 ml STK-MED ONCE .ROUTE ; Start 10/02/18 at 07:06; Stop 10/02/18 at 07:07; Status DC Propofol 20 ml @ As Directed STK-MED ONCE IV ; Start 10/02/18 at 07:06; Stop 10/02/18 at 07:07; Status DC Rocuronium [place] (Zemuron) 50 mg STK-MED ONCE .ROUTE ; Start 10/02/18 at 07:07; Stop 10/02/18 at 07:08; Status DC Dexamethasone Sodium Phosphate (Decadron) 20 mg STK-MED ONCE .ROUTE ; Start 10/02/18 at 07:11; Stop 10/02/18 at 07:12; Status DC Ondansetron HCl (Zofran) 4 mg STK-MED ONCE .ROUTE ; Start 10/02/18 at 07:11; Stop 10/02/18 at 07:12; Status DC Midazolam HCl (Versed) 2 mg STK-MED ONCE .ROUTE ; Start 10/02/18 at 07:11; Stop 10/02/18 at 07:12; Status DC Fentanyl Citrate (Fentanyl 2ml Vial) 100 mcg STK-MED ONCE .ROUTE ; Start 10/02/18 at 07:11; Stop 10/02/18 at 07:12; Status DC Active Scripts Active Reported Nexium Capsule (Esomeprazole Magnesium) 40 Mg Capsule.dr 40 Mg PO DAILYAC Mucinex Dm Er 600-30 Mg Tablet (Guaifenesin/Dextromethorphan) 1 Each Tab.er.12h 1 Each PO BID Provigil (Modafinil) 100 Mg Tablet 100 Mg PO DAILY Oxycodone Hcl 5 Mg Capsule 10 Mg PO PRN Q6HRS PRN Nabumetone 750 Mg Tablet 750 Mg PO BID Aspirin 81 Mg Tab.chew 81 Mg PO Tamsulosin Hcl 0.4 Mg Cap.er.24h 0.8 Mg PO HS Flonase Allergy Relief (Fluticasone Propionate) 9.9 Ml [place].susp 2 Sprays NS DAILY Bupropion Hcl Sr (Bupropion Hcl) 200 Mg Tablet.er 200 Mg PO BID Allergies Allergies: Coded Allergies: No Known Medication Allergies (Verified Allergy, Unknown, 07/12/18) adhesive tape (Verified Adverse Reaction, Intermediate, Rash, 07/12/18) ROS General: No: Chills, Night Sweats HEENT: No: Heacaches, Visual Changes Respiratory: No: Cough, Shortness of breath Cardiovascular: No Chest Pain Genitourinary: No Dysuria, No Hematuria Musculoskeletal: Yes Pain In: (posterior left calf) Physical Exam General: Alert, Cooperative HEENT: Atraumatic Lungs: Normal air movement Heart: RRR Abdomen: Soft Extremities: No clubbing, No cyanosis, No edema, Normal pulses, Other (fullness posterior knee, corresponds with area of bony mass) Skin: No significant lesion Neuro: Normal speech, Sensation intact Psych/Mental Status: Mental status NL, Mood NL Vitals Vitals Vital Signs Date Time Temp Pulse Resp B/P (MAP) Pulse Ox O2 Delivery O2 Flow Rate FiO2 10/02/18 06:41 97.5 61 18 143/79 97 Room Air 97.5 Labs Labs Laboratory Tests Test 10/02/18 06:28 White Blood Count 7.7 x10^3/uL (4.0-11.0) Red Blood Count 4.61 x10^6/uL (4.30-5.70) Hemoglobin 14.4 g/dL (13.0-17.5) Hematocrit 45.0 % (39.0-53.0) Mean Corpuscular Volume 98 fL (79-100) Mean Corpuscular Hemoglobin 31 pg (25-35) Mean Corpuscular Hemoglobin Concent 32 g/dL (31-37) Red Cell Distribution Width 15.1 % (11.5-14.5) Platelet Count 167 x10^3/uL (140-400) Neutrophils (%) (Auto) 34 % (31-73) Lymphocytes (%) (Auto) 47 % (24-48) Monocytes (%) (Auto) 12 % (0-9) Eosinophils (%) (Auto) 7 % (0-3) Basophils (%) (Auto) 1 % (0-3) Neutrophils # (Auto) 2.6 x10^3uL (1.8-7.7) Lymphocytes # (Auto) 3.6 x10^3/uL (1.0-4.8) Monocytes # (Auto) 0.9 x10^3/uL (0.0-1.1) Eosinophils # (Auto) 0.5 x10^3/uL (0.0-0.7) Basophils # (Auto) 0.1 x10^3/uL (0.0-0.2) Prothrombin Time 12.9 SEC (11.7-14.0) Prothromb Time International Ratio 1.0 (0.8-1.1) Activated Partial Thromboplast Time 37 SEC (24-38) Laboratory Tests Test 10/02/18 06:28 White Blood Count 7.7 x10^3/uL (4.0-11.0) Red Blood Count 4.61 x10^6/uL (4.30-5.70) Hemoglobin 14.4 g/dL (13.0-17.5) Hematocrit 45.0 % (39.0-53.0) Mean Corpuscular Volume 98 fL (79-100) Mean Corpuscular Hemoglobin 31 pg (25-35) Mean Corpuscular Hemoglobin Concent 32 g/dL (31-37) Red Cell Distribution Width 15.1 % (11.5-14.5) Platelet Count 167 x10^3/uL (140-400) Neutrophils (%) (Auto) 34 % (31-73) Lymphocytes (%) (Auto) 47 % (24-48) Monocytes (%) (Auto) 12 % (0-9) Eosinophils (%) (Auto) 7 % (0-3) Basophils (%) (Auto) 1 % (0-3) Neutrophils # (Auto) 2.6 x10^3uL (1.8-7.7) Lymphocytes # (Auto) 3.6 x10^3/uL (1.0-4.8) Monocytes # (Auto) 0.9 x10^3/uL (0.0-1.1) Eosinophils # (Auto) 0.5 x10^3/uL (0.0-0.7) Basophils # (Auto) 0.1 x10^3/uL (0.0-0.2) Prothrombin Time 12.9 SEC (11.7-14.0) Prothromb Time International Ratio 1.0 (0.8-1.1) Activated Partial Thromboplast Time 37 SEC (24-38) Images Images I reviewed his MRI which does show the mass clearly, and reviewed the report indicating nearly certainly a benign loose body VTE Prophylaxis Ordered VTE Prophylaxis Devices: Yes VTE Pharmacological Prophylaxi: Yes Assessment/Plan Assessment/Plan He does have a large posterior mass, 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 I reviewed his outside MRI images and and the report. Sarcoma was felt to be strongly unlikely. We discussed excision of the mass for symptom relief. We discussed anterior versus posterior approach. Typically anterior is used for loose bodies but in this case the mass is too large to fit through the knee joint and is too distal to be adequately visualized from anterior. He would require prone positioning, and a posterior approach to the knee with careful neurovascular dissection of the peroneal nerve and popliteal artery. I spoke to Dr. Murphy, vascular surgeon, and was instructed to place urgent consult if needed (this is unlikely). I discussed with him the potential risks of nerve or artery injury an subsequent distal problems, one example would be foot drop. I also discussed the low chance of sarcoma and offered him referral to a sarcoma specialist. He would like me to do the surgery and I'm comfortable exploring the posterior knee. I have done a posterior Flynn cyst excision, which is a similar approach to the posterior knee joint. I discussed all of this with him, risks b enefits and alternatives, and he desires to proceed. Positioning needs to be prone SABA VASQUEZ MD October 02, 2018 07:49
[2018-10-02] MEDS ORDERED: ePHEDrine PF IN SALINE 50 MG/10 ML SYRINGE. IV ONE (08:09)
[2018-10-02] MEDS ORDERED: HEPARIN SODIUM 5,000 UNIT in IV NORMAL SALINE 500ML BAG 500 ML IRR ONE (09:00)
[2018-10-02] MEDS ORDERED: hydrALAZINE 20 MG/ML VIAL. ONE (09:00)
[2018-10-02] MEDS ORDERED: ceFAZolin 2GM PREMIX 2 GM/50 ML BAG IV ONE (09:00)
[2018-10-02] MEDS ORDERED: KETAMINE HCL IN NACL, ISO-OSM 50 MG/5 ML SYRINGE ONE (09:04)
[2018-10-02] MEDS ORDERED: SURGICEL HEMOSTAT 4X8 EACH. ONE ×2 (09:06)
[2018-10-02] MEDS ORDERED: HEPARIN for IV BOLUS 10,000 UNIT/10 ML VIAL. ONE (09:12)
[2018-10-02] MEDS ORDERED: SEVOFLURANE > 120 MINUTES. IH ONE (09:43)
[2018-10-02] MEDS ORDERED: NEOSTIGMINE METHYLSULFATE 5 MG/5 ML SYRINGE. ONE (09:47)
[2018-10-02] MEDS ORDERED: GLYCOPYRROLATE 1 MG/5 ML VIAL. ONE (09:47)
[2018-10-02] MEDS ORDERED: SURGICEL FIBRILLAR 1X2 EACH. ONE (10:15)
[2018-10-02] MEDS ORDERED: PROTAMINE 50 MG/5 ML VIAL. IV ONE (10:15)
[2018-10-02] MEDS ORDERED: SURGICEL FIBRILLAR 1X2 EACH. SURGSITE ONE (10:19)
--- NOTE | 2018-10-02 10:47 | PDOC4 ---
Operative Note Operative Note Operative Report Dictated Pre-op: Intraoperative consult from Dr. Shields for left popliteal artery injury during posterior knee mass excision Post-op: same Operation: left popliteal artery repair with a bovine pericardial patch Surgeon: Dr. Murphy (introp consult with Dr. Shields) Blood loss: 200ml Anesthesia: general At the end of the case he had strong doppler left DP/PT pedal pulses MARYANN MURPHY MD October 02, 2018 10:47
[2018-10-02] MEDS: ASPIRIN ENTERIC COATED 81 MG TABLET.DR. PO SCH (11:00)
--- NOTE | 2018-10-02 11:02 | PDOC4 ---
Operative Note Operative Note Date of Procedure: October 02, 2018 Pre-Op Diagnosis: loose body left knee M23.42 Post-Op Diagnosis: same Procedure: left knee posterior arthrotomy, biopsy and removal of loose body CPT 78599 Surgeon: Saba Vasquez MD Anesthesia: General EBL: 200 mL Specimens Obtained: Posterior mass left knee Complications: Arterial perforation Drains: none Findings: Blood and bone filled mass posterior knee, consistent with loose body Indications for Procedure: The patient is a 68-year-old man with recent left total knee arthroplasty. He had posterior loose bodies at the time of surgery, most of which were removed. There is still a large posterior body which is partially calcified, and likely benign loose body related to the prior knee arthritis. This was too large and too distal to remove through the anterior knee joint at the time of the knee replacement surgery. The MRI shows a well circumscribed nonenhancing osseous mass in the expected region of the proximal fibers of the popliteus muscle, differential includes large loose body, myositis ossificans, heterotopic ossification, or unlikely to be synovial sarcoma. The patient and I discussed the risks, benefits and alternatives of surgery. I spoke to a vascular surgeon Dr. Dora Murphy, preoperatively about possible need for intraoperative consult, although I felt this was unlikely. Procedure in Detail: The patient was identified in the preoperative holding area. The correct extremity was marked by me. The patient was taken to the operating room where general anesthesia was used. A tourniquet was used on the upper left thigh. The patient was positioned prone on the operating table. Preoperative antibiotics were given intravenously. A timeout procedure was performed. The limb was prepared in sterile fashion with surgical prep solution. Sterile drapes were applied. An impervious stockinette was placed over the foot and lower leg. An Esmarch bandage was used to template the limb the tourniquet was inflated to 350 mmHg. A posterior approach to the knee was used with a curvilinear incision, transverse across the popliteal crease, extending proximally along the lateral aspect and distally along the medial aspect of the calf. Sharp dissection was used through the skin and Bovie electrocautery was used for hemostasis. A vessel loop was placed around the sural nerve and short saphenous vein, and these were carefully retracted. Blunt digital dissection was used between the heads of the gastrocnemius. Distal digital dissection located the mass distally, and underneath the popliteal artery. The popliteal artery was mobilized with a vessel loop, and further dissection exposed the mass. This was posterior to the knee joint, and nearly adherent to the posterior tibia. Careful dissection was used around the mass, which was partially fluid filled, consistent with hematoma or joint fluid. The mass was incised, and some of the contents expressed to decompress it and allow easier excision of the adherent inflamed capsule of the mass. The contents are partially bony, I believe this is partially developed bony loose body, and old hematoma. Scissor dissection was used with Metzenbaum scissors. My machine operator assistant held vessel loops and vein retractors to prevent neurovascular injury. I grasped the capsule of the mass with an Allis clamp and continued the excision with Metzenbaum scissors, circumferentially, until the mass was freed. At this point, with the last transection of tissue with the scissors and delivery of the mass, I realized I had cut with the Metzenbaum scissors into the popliteal artery longitudinally. I had inadvertently excised a longitudinal portion of the artery wall for a distance of approximately 15 mm, and about 25 percent of the circumference of the artery. I consulted Dr. Murphy and she made plans to scrub into the surgery for intra- operative consultation and arterial repair. The mass was sent as a specimen in a specimen cup, and had been removed piecemeal. I did some gentle dissection of the popliteal artery proximally and distally, and placed a vessel loop around it circumferentially proximally for arterial control. The tourniquet was released. The original tourniquet up time was 8:22 AM. The arterial injury occurred at 9:00 AM. The tourniquet was released a few minutes after 9:00, and there appears to be some collateral flow and perfusion of the leg. A moist laparotomy sponge was kept over the artery and surgical exposure until Dr. Murphy arrived. Intravenous heparin was given at her request. She performed the arterial repair using a bovine patch. She performed a thrombectomy first. Protamine was then given for reversal. She performed additional hemostasis with vessel clips. Bovie electrocautery was used on the skin edges for additional hemostasis. The tourniquet remained down. She confirmed the patent arterial repair using sterile Doppler. Pulsatile flow was noted distally and there is no artery leak after the repair. Copious irrigation was used with saline. Bupivacaine 0.25% with epinephrine was injected into the skin edges for additional hemostasis and pain relief. I closed the incision with 0 Vicryl, and 2-0 Vicryl. My machine operator assistant then closed the skin with 3-0 Prolene horizontal mattress sutures. Xeroform and a bulky sterile dressing were applied. Needle and sponge counts were correct. The only competition noted was the arterial perforation. SABA VASQUEZ MD October 02, 2018 11:02
[2018-10-02] MEDS ORDERED: PROCHLORPERAZINE 5 MG TABLET. PO PRN (11:15)
[2018-10-02] MEDS ORDERED: CALCIUM CARBONATE 500 MG TAB.CHEW PO PRN (11:15)
[2018-10-02] MEDS ORDERED: DEXTROSE 50% 25 GM / 50ML DISP.SYRIN. IV PRN (11:15)
[2018-10-02] MEDS ORDERED: METOCLOPRAMIDE HCL 10 MG/2 ML VIAL. IV PRN (11:15)
[2018-10-02] MEDS ORDERED: MORPHINE SULFATE 4 MG/ML VIAL. IV PRN (11:15)
[2018-10-02] MEDS ORDERED: 0.9 % SODIUM CHLORIDE 10 ML DISP.SYRIN. IV PRN (11:15)
[2018-10-02] MEDS ORDERED: diphenhydrAMINE 50 MG/ML VIAL IV PRN (11:15)
[2018-10-02] MEDS: fentaNYL PF VIAL 100 MCG/2 ML VIAL IV PRN ×2 (11:45→11:57)
--- NOTE | 2018-10-02 11:55 | OP ---
DATE OF SURGERY: 10/02/2018 PREOPERATIVE DIAGNOSIS: This is an intraoperative emergent consult for left popliteal artery injury during orthopedic procedure by Dr. Shields with a posterior knee mass excision. POSTOPERATIVE DIAGNOSIS: Left popliteal artery longitudinal injury on the anterior wall. SURGEON: Dora Murphy M.D.; this is an intraoperative consult for Dr. Shields. CAREER GUIDANCE COUNSELOR: None from our vascular team. ANESTHESIA USED: General anesthesia OPERATION PERFORMED: Left popliteal artery repair using a bovine pericardial patch on the anterior wall of the artery. BLOOD LOSS: 200 mL. INDICATION: The patient is a 68-year-old male who was undergoing an orthopedic procedure by Dr. Shields today with a posterior approach for a left posterior knee mass excision. During the operation inadvertently, the anterior wall of the popliteal artery was injured encountering bleeding, which was quickly controlled with a tourniquet and then vessel loops on the proximal and distal artery by Dr. Shields. Vascular Surgery was emergently called for intraoperative consultation and repair. DETAILS OF THE OPERATION: When I entered, the patient had the tourniquet down and the proximal and distal popliteal artery were controlled with vessel loops and he had been given 5000 units of heparin, which was our instruction as we were initially consulted over the phone. In the exploration, the popliteal artery had a segment of several centimeters on the anterior wall, which were open. I could visually visualize the inner lumen and the inner lumen was widely patent with no atherosclerotic disease and healthy. The proximal popliteal artery had a good strong pulse proximally. A clamp was moved slightly more proximally. Distally, the popliteal artery clamp was moved more distally and there were no abnormalities to this area of the vessel. I did remove the clamps. There was good backbleeding from the distal popliteal artery. I did run a #3 Merlin embolectomy catheter all the way down the length of the leg and pulled back and there was no thrombus and there was brisk backbleeding afterwards and it was flushed with saline and then clamped. There was a branch of the popliteal artery going more anterior, which was encircled with a vessel loop to control some backbleeding from the small branch. There was also a medial small branch, which was lacerated and this was ligated with a silk suture and clipped on the distal end of it. Proximally, I ran a #4 Merlin embolectomy catheter proximally, ran up easily throughout the length of the leg, pulled back and there was no thrombus, there was good pulsatile inflow from the proximal popliteal artery. This was reclamped. I trimmed the edges of the open anterior wall, which were fairly ragged to make it a nice clean vessel, again the posterior, medial and lateral wall. The vessels were nice and healthy. I felt it best to repair this defect with a bovine pericardial patch, I used a 0.8 cm diameter x 8 cm in length patch and we performed anastomosis between the open popliteal artery and the bovine pericardial patch using running HS-7 Prolene suture. The distal end was cut to size. Prior to finishing the anastomosis, we backbled the vessels. There were still good pulsatile inflow and good backbleeding. We irrigated with saline and then finished the anastomosis. We restored blood flow to the leg. There was strong dopplerable flow in the distal popliteal artery and at the dorsalis pedis and posterior tibial location at the foot. There was small amount of bleeding on the lateral aspect of the anastomosis, which was oversewed with 6-0 Prolene suture after which time, there was good hemostasis from the vessel and the anastomosis. We explored there was oozing throughout the wound bed. We did reverse with a total of 50 mg of protamine. We explored the deep cavity medial to the artery where the mass was removed. There were a few venous branches, which were clipped and areas that were cauterized. We irrigated with copious amounts of antibiotic solution throughout that cavity and throughout the entire wound. We explored the wound controlling any areas of bleeding with electrocautery and clips until there was good hemostasis. Fibrillar was left in the deep hole where the mass was excised and over the vessels. Dr. Shields performed closure of the incision. Please see his note for full details of other portions of this operation. At the end of the case, he had strong dopplerable flow in the dorsalis pedis and posterior tibial location in the left foot. DORA MURPHY MD DR: JOANNE/cyndie JOB#: [id number] / [id number]
[2018-10-02] MEDS: ONDANSETRON ODT 4 MG TAB.RAPDIS. PO SCH ×2 (12:00→18:00)
[2018-10-02] MEDS: ONDANSETRON PF 4 MG/2 ML VIAL. IV SCH ×2 (12:00→18:00)
[2018-10-02] MEDS: IV NORMAL SALINE 1000ML BAG 1,000 ML IV SCH (12:26)
[2018-10-02] MEDS: MORPHINE SULFATE 2 MG/ML VIAL. IV PRN ×4 (12:26→20:29)
--- NOTE | 2018-10-02 12:40 | NUR ---
Received from PACU per bed, alert/oriented, outer wrap clean dry & intact to LLE, pulse +, foot warm & dry, states discomfort level 7/10, SCD to RLE, see admission assessment, oriented to surroundings, notified of bedrest until tomorrow, urinal at bedside, spouse at bedside, call light within reach
[2018-10-02] MEDS: oxyCODONE/APAP 10/325 1 TAB TABLET PO PRN ×4 (13:08→21:34)
--- NOTE | 2018-10-02 16:03 | NUR ---
Recent fall previous before admission with abrasion to right forehead/eye, and noted area on lip
--- NOTE | 2018-10-02 18:36 | NUR ---
Zofran po/iv held, no nausea or vomiting noted
--- NOTE | 2018-10-02 21:40 | NUR ---
Dr Calderón returned call read all patient home meds with order to continue flomax,nabumetone,bupropionHcl,modafinil,guaifenesin,flonase spray,nexium and to start aspirin 81 mg in am
[2018-10-02] MEDS ORDERED: buPROPion SR 100 MG TABLET.SA. PO ONE (22:30)
[2018-10-02] MEDS: buPROPion SR 100 MG TABLET.SA. PO SCH ×2 (22:33→22:35)
[2018-10-02] MEDS: TAMSULOSIN 0.4 MG CAP.ER.24H. PO SCH (22:33)
[2018-10-03] MEDS: oxyCODONE/APAP 10/325 1 TAB TABLET PO PRN ×5 (01:49→20:02)
[2018-10-03 03:00] VITALS: BP 115/78
[2018-10-03] MEDS ORDERED: MAGNESIUM HYDROXIDE 2,400 MG/30 ML ORAL.SUSP. PO PRN (06:00)
[2018-10-03] MEDS: ONDANSETRON ODT 4 MG TAB.RAPDIS. PO SCH ×2 (06:00)
[2018-10-03] MEDS: ONDANSETRON PF 4 MG/2 ML VIAL. IV SCH ×2 (06:00)
[2018-10-03 06:30] VITALS: BP 137/78
--- NOTE | 2018-10-03 07:15 | NUR ---
pt stated still had tingly sensation and numbness on back of the left foot
[2018-10-03] MEDS: PANTOPRAZOLE 40 MG TABLET.DR. PO SCH (07:19)
[2018-10-03] MEDS: MELOXICAM 7.5 MG TABLET PO SCH (08:44)
[2018-10-03] MEDS: guaiFENesin DM 600/30MG 1 TAB TAB.ER.12H PO SCH ×2 (08:45→20:46)
[2018-10-03] MEDS: SENNOSIDES/DOCUSATE 8.6/50MG TABLET. PO SCH (08:45)
[2018-10-03] MEDS: ASPIRIN ENTERIC COATED 81 MG TABLET.DR. PO SCH (08:45)
--- NOTE | 2018-10-03 08:47 | PDOC ---
PROGRESS NOTES Subjective Subjective Pt seen and examined in his hospital bed POD #1 s/p left popliteal artery repair by Dr Murphy at the time of posterior approach to popliteal fossa mass resection by Orthopedics He c/o some numbness to the left foot Objective Objective Vital Signs Date Time Temp Pulse Resp B/P (MAP) Pulse Ox O2 Delivery O2 Flow Rate FiO2 10/03/18 06:30 98.0 77 18 137/78 (97) 94 Nasal Cannula 2.0 98.0 Intake and Output 10/03/18 07:00 Intake Total 2170 ml Output Total 2650 ml Balance -480 ml Intake Oral 1120 ml IV Total 1050 ml Output Urine Total 2450 ml Estimated Blood Loss 200 ml Physical Exam Physical Exam dressings taken down by me left PT pulse is 2+ palpable and strong left DP signal pop incision is C/D/I no hematoma (mild ecchymosis of the skin, soft no mass no hematoma) all 4 compartments are totally soft without any pain on firm compression no pain on passive dorsiflexion of the foot He has strong dorsiflexion and plantarflexion of the foot / ankle and moves the toes to command. no foot drop Assessment Assessment Doing well s/p left pop artery repair excellent distal flow (easily palpable 2+ PT pulse at the ipsilateral ankle) Foot is numb -- there is no ischemia and no clinical evidence of compartment syndrome I expect most likely a traction injury to the nerve this should improve over time. Plan Plan of Care doing well s/p left popliteal repair palpable distal pulse, normal compartments Up and ambulate today daily aspirin Comment Review of Relevant I have reviewed the following items sofia (where applicable) has been applied. Labs Laboratory Tests Test 10/02/18 06:28 White Blood Count 7.7 x10^3/uL (4.0-11.0) Red Blood Count 4.61 x10^6/uL (4.30-5.70) Hemoglobin 14.4 g/dL (13.0-17.5) Hematocrit 45.0 % (39.0-53.0) Mean Corpuscular Volume 98 fL (79-100) Mean Corpuscular Hemoglobin 31 pg (25-35) Mean Corpuscular Hemoglobin Concent 32 g/dL (31-37) Red Cell Distribution Width 15.1 % (11.5-14.5) Platelet Count 167 x10^3/uL (140-400) Neutrophils (%) (Auto) 34 % (31-73) Lymphocytes (%) (Auto) 47 % (24-48) Monocytes (%) (Auto) 12 % (0-9) Eosinophils (%) (Auto) 7 % (0-3) Basophils (%) (Auto) 1 % (0-3) Neutrophils # (Auto) 2.6 x10^3uL (1.8-7.7) Lymphocytes # (Auto) 3.6 x10^3/uL (1.0-4.8) Monocytes # (Auto) 0.9 x10^3/uL (0.0-1.1) Eosinophils # (Auto) 0.5 x10^3/uL (0.0-0.7) Basophils # (Auto) 0.1 x10^3/uL (0.0-0.2) Prothrombin Time 12.9 SEC (11.7-14.0) Prothromb Time International Ratio 1.0 (0.8-1.1) Activated Partial Thromboplast Time 37 SEC (24-38) Medications Current Medications Morphine Sulfate 5 mg/Ketorolac Tromethamine 30 mg/Ropivacaine 60 ml/Epinephrine HCl 0.5 mg/Sodium Chloride 100 ml @ 100 mls/hr 1X ONCE INT ART ; Start 10/02/18 at 06:00; Stop 10/02/18 at 06:59; Status DC Ondansetron HCl (Zofran) 4 mg PRN Q6HRS PRN IV NAUSEA/VOMITING; Start 10/02/18 at 07:00; Stop 10/02/18 at 13:52; Status DC Fentanyl Citrate (Fentanyl 2ml Vial) 25 mcg PRN Q5MIN PRN IV MILD PAIN; Start 10/02/18 at 07:00; Stop 10/02/18 at 13:52; Status DC Fentanyl Citrate (Fentanyl 2ml Vial) 50 mcg PRN Q5MIN PRN IV MODERATE TO SEVERE PAIN Last administered on 10/02/18at 11:57; Start 10/02/18 at 07:00; Stop 10/02/18 at 13:52; Status DC Morphine Sulfate (Morphine Sulfate) 1 mg PRN Q10MIN PRN IV SEVERE PAIN Last administered on 10/02/18at 12:38; Start 10/02/18 at 07:00; Stop 10/02/18 at 13:52; Status DC Ringer's Solution 1,000 ml @ 30 mls/hr Q24H IV Last administered on 10/02/18at 06:44; Start 10/02/18 at 07:00; Stop 10/02/18 at 13:52; Status DC Hydromorphone HCl (Dilaudid) 0.5 mg PRN Q10MIN PRN IV SEV PAIN, Second choice; Start 10/02/18 at 07:00; Stop 10/02/18 at 13:52; Status DC Prochlorperazine Edisylate (Compazine) 5 mg PACU PRN PRN IV NAUSEA, MRX1; Start 10/02/18 at 07:00; Stop 10/02/18 at 13:52; Status DC Cefazolin Sodium/ Dextrose 50 ml @ 100 mls/hr 1X PREOP PRN IV PRIOR TO PROCEDURE Last administered on 10/02/18at 07:41; Start 10/02/18 at 06:00; Stop 10/02/18 at 18:00; Status DC Bupivacaine HCl/ Epinephrine Bitart (Sensorcaine-Epi 0.25%-1:384389 Mpf) 30 ml STK-MED ONCE .ROUTE Last administered on 10/02/18at 08:22; Start 10/02/18 at 05:56; Stop 10/02/18 at 06:56; Status DC Lidocaine HCl (Lidocaine Pf 2% Vial) 5 ml STK-MED ONCE .ROUTE ; Start 10/02/18 at 07:06; Stop 10/02/18 at 07:07; Status DC Propofol 20 ml @ As Directed STK-MED ONCE IV ; Start 10/02/18 at 07:06; Stop 10/02/18 at 07:07; Status DC Rocuronium [place] (Zemuron) 50 mg STK-MED ONCE .ROUTE ; Start 10/02/18 at 07:07; Stop 10/02/18 at 07:08; Status DC Dexamethasone Sodium Phosphate (Decadron) 20 mg STK-MED ONCE .ROUTE ; Start 10/02/18 at 07:11; Stop 10/02/18 at 07:12; Status DC Ondansetron HCl (Zofran) 4 mg STK-MED ONCE .ROUTE ; Start 10/02/18 at 07:11; Stop 10/02/18 at 07:12; Status DC Midazolam HCl (Versed) 2 mg STK-MED ONCE .ROUTE ; Start 10/02/18 at 07:11; Stop 10/02/18 at 07:12; Status DC Fentanyl Citrate (Fentanyl 2ml Vial) 100 mcg STK-MED ONCE .ROUTE ; Start 10/02/18 at 07:11; Stop 10/02/18 at 07:12; Status DC Ephedrine Sulfate (ePHEDrine PF IN SALINE SYRINGE) 50 mg STK-MED ONCE IV ; Start 10/02/18 at 08:09; Stop 10/02/18 at 08:10; Status DC Hydralazine HCl (Apresoline Inj) 20 mg STK-MED ONCE .ROUTE ; Start 10/02/18 at 09:00; Stop 10/02/18 at 09:01; Status DC Ketamine HCl (Ketamine) 50 mg STK-MED ONCE .ROUTE ; Start 10/02/18 at 09:04; Stop 10/02/18 at 09:05; Status DC Heparin Sodium (Porcine) (Heparin Sodium) 10,000 unit STK-MED ONCE .ROUTE ; Start 10/02/18 at 09:12; Stop 10/02/18 at 09:13; Status DC Cefazolin Sodium 1 gm/Sodium Chloride 500 ml @ 500 mls/hr 1X ONCE IRR Last administered on 10/02/18at 09:40; Start 10/02/18 at 09:00; Stop 10/02/18 at 09:59; Status DC Heparin Sodium (Porcine) 5000 unit/Sodium Chloride 505 ml @ 505 mls/hr 1X ONCE IRR Last administered on 10/02/18at 09:40; Start 10/02/18 at 09:00; Stop 10/02/18 at 09:59; Status DC Sevoflurane (Ultane) 90 ml STK-MED ONCE IH ; Start 10/02/18 at 09:43; Stop 10/02/18 at 09:44; Status DC Glycopyrrolate (Robinul) 1 mg STK-MED ONCE .ROUTE ; Start 10/02/18 at 09:47; Stop 10/02/18 at 09:48; Status DC Neostigmine Methylsulfate (Neostigmine Methylsulfate) 5 mg STK-MED ONCE .ROUTE ; Start 10/02/18 at 09:47; Stop 10/02/18 at 09:48; Status DC Cellulose (Surgicel Hemostat 4x8) 1 each STK-MED ONCE .ROUTE ; Start 10/02/18 at 09:06; Stop 10/02/18 at 10:06; Status DC Cellulose (Surgicel Hemostat 4x8) 1 each STK-MED ONCE .ROUTE ; Start 10/02/18 at 09:06; Stop 10/02/18 at 10:06; Status DC Protamine Sulfate (Protamine) 50 mg STK-MED ONCE IV ; Start 10/02/18 at 10:15; Stop 10/02/18 at 10:16; Status DC Cellulose (Surgicel Fibrillar 1x2) 1 each STK-MED ONCE .ROUTE ; Start 10/02/18 at 10:15; Stop 10/02/18 at 10:16; Status DC Cellulose (Surgicel Fibrillar 1x2) 1 each STK-MED ONCE SURGSITE Last administered on 10/02/18at 10:19; Start 10/02/18 at 10:19; Stop 10/02/18 at 10:22; Status DC Fentanyl Citrate (Fentanyl 2ml Vial) 100 mcg STK-MED ONCE .ROUTE ; Start 10/02/18 at 10:39; Stop 10/02/18 at 10:40; Status DC Aspirin (Ecotrin) 81 mg DAILYWBKFT PO ; Start 10/02/18 at 11:00 Morphine Sulfate (Morphine Sulfate) 2 mg PRN Q1HR PRN IV PAIN Last administered on 10/02/18at 20:29; Start 10/02/18 at 11:15 Fentanyl Citrate (Fentanyl 2ml Vial) 25 mcg PRN Q1HR PRN IV PAIN, 2nd CHOICE; Start 10/02/18 at 11:15 Diphenhydramine HCl (Benadryl) 25 mg PRN Q6HRS PRN IV ITCHING; Start 10/02/18 at 11:15 Senna/Docusate Sodium (Senna Plus) 1 tab DAILY PO ; Start 10/03/18 at 09:00 Sodium Chloride 1,000 ml @ 40 mls/hr Q24H IV Last administered on 10/02/18at 12:26; Start 10/02/18 at 11:03 Prochlorperazine Maleate (Compazine) 10 mg PRN Q4HRS PRN PO Nausea/vomiting, 2nd choice; Start 10/02/18 at 11:15 Metoclopramide HCl (Reglan Vial) 10 mg PRN Q4HRS PRN IV NAUSEA/VOMITING, 3rd CHOICE; Start 10/02/18 at 11:15 Magnesium Hydroxide (Milk Of Magnesia) 2,400 mg 1X PRN PRN PO CONSTIPATION; Start 10/03/18 at 06:00; Stop 10/04/18 at 05:59 Bisacodyl (Dulcolax Supp) 10 mg 1X PRN PRN [place] CONSTIPATION; Start 10/03/18 at 16:00; Stop 10/04/18 at 15:59 Zolpidem Tartrate (Ambien) 5 mg PRN QHS PRN PO INSOMNIA, MAY REPEAT IN 1HR; Start 10/02/18 at 11:15 Calcium Carbonate/ Glycine (Tums) 500 mg PRN QID PRN PO INDIGESTION; Start 10/02/18 at 11:15 Morphine Sulfate (Morphine Sulfate) 4 mg PRN Q1HR PRN IV PAIN; Start 10/02/18 at 11:15 Sodium Chloride (Normal Saline Flush) 10 ml QSHIFT PRN IV AFTER MEDS AND BLOOD DRAWS; Start 10/02/18 at 11:15 Fentanyl Citrate (Fentanyl 2ml Vial) 50 mcg PRN Q1HR PRN IV PAIN, 2nd CHOICE; Start 10/02/18 at 11:15 Ondansetron HCl (Zofran) 4 mg Q6HRS IV ; Start 10/02/18 at 12:00; Stop 10/03/18 at 06:01; Status DC Ondansetron HCl (Zofran Odt) 4 mg Q6HRS PO ; Start 10/02/18 at 12:00; Stop 10/03/18 at 06:01; Status DC Ondansetron HCl (Zofran) 4 mg PRN Q6HRS PRN IV Nausea/vomiting, 1st choice; Start 10/03/18 at 12:00 Ondansetron HCl (Zofran Odt) 4 mg PRN Q6HRS PRN PO Nausea/vomiting, 1st choice; Start 10/03/18 at 12:00 Dextrose (Dextrose 50%-Water Syringe) 12.5 gm PRN Q15MIN PRN IV SEE COMMENTS; Start 10/02/18 at 11:15 Cefazolin Sodium/ Dextrose 50 ml @ 100 mls/hr Q6H IV Last administered on 10/03/18at 01:56; Start 10/02/18 at 14:00; Stop 10/03/18 at 02:29; Status DC Oxycodone/ Acetaminophen (Percocet 10/325) 1 tab PRN Q4HRS PRN PO MODERATE PAIN Last administered on 10/02/18at 14:09; Start 10/02/18 at 11:15 Oxycodone/ Acetaminophen (Percocet 10/325) 2 tab PRN Q4HRS PRN PO SEVERE PAIN Last administered on 10/03/18at 06:07; Start 10/02/18 at 12:00 Tamsulosin HCl (Flomax) 0.8 mg HS PO Last administered on 10/02/18at 22:33; S tart 10/02/18 at 22:30 Guaifenesin (MUCINEX ER with DM) 1 tab BID PO ; Start 10/03/18 at 09:00 Fluticasone Propionate (Flonase) 2 spray DAILY NS ; Start 10/03/18 at 09:00 Bupropion HCl (Wellbutrin Sr) 200 mg BID PO Last administered on 10/02/18at 22:33; Start 10/03/18 at 09:00 Non-Formulary Medication (Modafinil (Provigil)) 100 mg DAILY PO ; Start 10/03/18 at 09:00; Status UNV Meloxicam (Mobic) 15 mg DAILY PO ; Start 10/03/18 at 09:00 Pantoprazole Sodium (Protonix) 40 mg DAILYAC PO Last administered on 10/03/18at 0 7:19; Start 10/03/18 at 07:30 Bupropion HCl (Wellbutrin Sr) 200 mg ONCE ONCE PO Last administered on 10/02/18at 22:30; Start 10/02/18 at 22:30; Stop 10/02/18 at 22:31; Status DC Active Scripts Active Reported Nexium Capsule (Esomeprazole Magnesium) 40 Mg Capsule.dr 40 Mg PO DAILYAC Mucinex Dm Er 600-30 Mg Tablet (Guaifenesin/Dextromethorphan) 1 Each Tab.er.12h 1 Each PO BID Provigil (Modafinil) 100 Mg Tablet 100 Mg PO DAILY Oxycodone Hcl 5 Mg Capsule 10 Mg PO PRN Q6HRS PRN Nabumetone 750 Mg Tablet 750 Mg PO BID Aspirin 81 Mg Tab.chew 81 Mg PO Tamsulosin Hcl 0.4 Mg Cap.er.24h 0.8 Mg PO HS Flonase Allergy Relief (Fluticasone Propionate) 9.9 Ml [place].susp 2 Sprays NS DAILY Bupropion Hcl Sr (Bupropion Hcl) 200 Mg Tablet.er 200 Mg PO BID Vitals/I & O Vital Sign - Last 24 Hours 10/02/18 10/02/18 10/02/18 10/02/18 11:17 11:17 11:32 11:45 Temp 97.6 97.6 Pulse 75 73 Resp 20 20 22 B/P (MAP) 156/83 153/82 Pulse Ox 100 97 99 O2 Delivery Mask Simple Mask Simple Mask Simple Mask O2 Flow Rate 10 10 10 10.0 10/02/18 10/02/18 10/02/18 10/02/18 11:47 11:57 12:03 12:18 Temp 97.6 97.6 Pulse 79 79 72 Resp 20 20 20 20 B/P (MAP) 147/84 148/80 141/86 Pulse Ox 97 98 97 O2 Delivery Nasal Cannula Nasal Cannula Nasal Cannula Nasal Cannula O2 Flow Rate 2 2.0 2 2 10/02/18 10/02/18 10/02/18 10/02/18 12:26 12:33 12:38 12:40 Pulse 72 Resp 20 20 20 B/P (MAP) 141/86 Pulse Ox 99 97 O2 Delivery Nasal Cannula Nasal Cannula Nasal Cannula O2 Flow Rate 2 2.0 2 10/02/18 10/02/18 10/02/18 10/02/18 12:40 12:40 12:41 13:00 Temp 97.6 97.6 97.6 97.6 Pulse 83 84 75 Resp 16 20 B/P (MAP) 140/85 (103) 146/81 (102) 140/85 (103) Pulse Ox 92 94 95 O2 Delivery Nasal Cannula Nasal Cannula Nasal Cannula O2 Flow Rate 2.0 2.0 2.0 10/02/18 10/02/18 10/02/18 10/02/18 13:10 13:40 14:40 15:29 Temp 97.4 97.4 Pulse 84 80 87 82 Resp 18 B/P (MAP) 142/87 (105) 133/70 (91) 121/88 (99) 124/84 (97) Pulse Ox 96 O2 Delivery Nasal Cannula O2 Flow Rate 2.0 10/02/18 10/02/18 10/02/18 10/02/18 16:00 17:10 17:39 18:16 Temp 97.0 97.8 97.0 97.8 Pulse 77 90 Resp 18 20 B/P (MAP) 126/80 (95) 120/88 (99) Pulse Ox 97 97 O2 Delivery Nasal Cannula Nasal Cannula Room Air Nasal Cannula O2 Flow Rate 2.0 2.0 10/02/18 10/02/18 10/02/18 10/02/18 20:15 20:29 21:00 21:34 Resp 18 20 20 Pulse Ox 93 92 95 O2 Delivery Room Air Room Air Room Air Room Air 10/02/18 10/03/18 10/03/18 10/03/18 23:00 01:49 03:00 03:00 Temp 98.1 98.4 98.1 98.4 Pulse 85 74 Resp 18 20 18 18 B/P (MAP) 126/80 (95) 115/78 (90) Pulse Ox 96 94 96 O2 Delivery Nasal Cannula Room Air Room Air Nasal Cannula O2 Flow Rate 2.0 2.0 10/03/18 10/03/18 06:07 06:30 Temp 98.0 98.0 Pulse 77 Resp 20 18 B/P (MAP) 137/78 (97) Pulse Ox 94 94 O2 Delivery Room Air Nasal Cannula O2 Flow Rate 2.0 Intake and Output 10/02/18 10/02/18 10/03/18 15:00 23:00 07:00 Intake Total 1170 ml 390 ml 610 ml Output Total 600 ml 700 ml 1350 ml Balance 570 ml -310 ml -740 ml JULIO C SALMERON MD October 03, 2018 08:47
[2018-10-03] MEDS: MODAFINIL 100 MG PO SCH (09:00)
[2018-10-03] MEDS: FLUTICASONE 50MCG/NASAL SPRAY 16GM BOTTLE. NS SCH (09:00)
[2018-10-03 10:02] LABS: HEMATOCRIT 40.7 % (39.0-53.0)
[2018-10-03] MEDS: IV NORMAL SALINE 1000ML BAG 1,000 ML IV SCH (11:03)
[2018-10-03 11:14] VITALS: BP 130/76
[2018-10-03] MEDS ORDERED: ONDANSETRON ODT 4 MG TAB.RAPDIS. PO PRN (12:00)
[2018-10-03] MEDS ORDERED: ONDANSETRON PF 4 MG/2 ML VIAL. IV PRN (12:00)
[2018-10-03] MEDS ORDERED: BISACODYL 10 MG SUPP.RECT. PR PRN (16:00)
[2018-10-03 18:03] VITALS: BP 129/81
--- NOTE | 2018-10-03 19:45 | NUR ---
make round with order okay to D/C every hour vascular assessment and okay for patient to ambulate
--- NOTE | 2018-10-03 19:59 | PDOC ---
PROGRESS NOTES Subjective Subjective Slight swelling, minimal pain, has some foot numbness Objective Vital Signs Vital Signs Date Time Temp Pulse Resp B/P (MAP) Pulse Ox O2 Delivery O2 Flow Rate FiO2 10/03/18 18:03 98.0 74 20 129/81 (97) 97 Room Air 98.0 10/03/18 06:30 2.0 Physical Exam Good AROM of foot and toes with no foot drop or detectable weakness. Slight sen kiran loss subjectively. I agree with Dr. Marroquin, likely traction injury since the nerve was retracted during surgery, and this should improve with time. Calf soft, compartments soft. Slight distal swelling foot and ankle. No ecchymosis, no ischemia, slight bloody drainage at dressing. Good pulse +2 DP Labs Laboratory Tests Test 10/02/18 06:28 10/03/18 09:20 White Blood Count 7.7 x10^3/uL (4.0-11.0) Red Blood Count 4.61 x10^6/uL (4.30-5.70) Hemoglobin 14.4 g/dL (13.0-17.5) 13.0 g/dL (13.0-17.5) Hematocrit 45.0 % (39.0-53.0) 40.7 % (39.0-53.0) Mean Corpuscular Volume 98 fL (79-100) Mean Corpuscular Hemoglobin 31 pg (25-35) Mean Corpuscular Hemoglobin Concent 32 g/dL (31-37) 32 g/dL (31-37) Red Cell Distribution Width 15.1 % (11.5-14.5) Platelet Count 167 x10^3/uL (140-400) Neutrophils (%) (Auto) 34 % (31-73) Lymphocytes (%) (Auto) 47 % (24-48) Monocytes (%) (Auto) 12 % (0-9) Eosinophils (%) (Auto) 7 % (0-3) Basophils (%) (Auto) 1 % (0-3) Neutrophils # (Auto) 2.6 x10^3uL (1.8-7.7) Lymphocytes # (Auto) 3.6 x10^3/uL (1.0-4.8) Monocytes # (Auto) 0.9 x10^3/uL (0.0-1.1) Eosinophils # (Auto) 0.5 x10^3/uL (0.0-0.7) Basophils # (Auto) 0.1 x10^3/uL (0.0-0.2) Prothrombin Time 12.9 SEC (11.7-14.0) Prothromb Time International Ratio 1.0 (0.8-1.1) Activated Partial Thromboplast Time 37 SEC (24-38) Laboratory Tests Test 10/03/18 09:20 Hemoglobin 13.0 g/dL (13.0-17.5) Hematocrit 40.7 % (39.0-53.0) Mean Corpuscular Hemoglobin Concent 32 g/dL (31-37) Assessment Assessment POD 1 mass resection posterior knee (loose body variant). Required arterial repair with bovine patch by vascular surgery. Plan Plan of Care Will mobilize. ASA po daily. Discharge planning, likely for tomorrow if ok with vascular. SABA VASQUEZ MD October 03, 2018 19:59
[2018-10-03] MEDS: TAMSULOSIN 0.4 MG CAP.ER.24H. PO SCH (20:39)
[2018-10-03] MEDS: ZOLPIDEM 5 MG TABLET. PO PRN (20:40)
[2018-10-03] MEDS: buPROPion SR 100 MG TABLET.SA. PO SCH (20:40)
[2018-10-04 04:45] LABS: HEMATOCRIT 39.3 % (39.0-53.0)
[2018-10-04 06:00] VITALS: BP 146/88
[2018-10-04] MEDS: ASPIRIN ENTERIC COATED 81 MG TABLET.DR. PO SCH (08:00)
[2018-10-04] MEDS: PANTOPRAZOLE 40 MG TABLET.DR. PO SCH (08:23)
[2018-10-04] MEDS: oxyCODONE/APAP 10/325 1 TAB TABLET PO PRN ×4 (08:25→20:53)
[2018-10-04] MEDS: buPROPion SR 100 MG TABLET.SA. PO SCH ×2 (08:26→20:53)
[2018-10-04] MEDS: MELOXICAM 7.5 MG TABLET PO SCH (08:27)
[2018-10-04] MEDS: SENNOSIDES/DOCUSATE 8.6/50MG TABLET. PO SCH (08:27)
[2018-10-04] MEDS: guaiFENesin DM 600/30MG 1 TAB TAB.ER.12H PO SCH ×2 (08:28→20:55)
[2018-10-04] MEDS: FLUTICASONE 50MCG/NASAL SPRAY 16GM BOTTLE. NS SCH (08:30)
[2018-10-04] MEDS: MODAFINIL 100 MG PO SCH (08:30)
--- NOTE | 2018-10-04 08:44 | PDOC ---
PROGRESS NOTES Subjective Subjective Hasn't really been out of bed. Numbness persists, feels tired. Objective Vital Signs Vital Signs Date Time Temp Pulse Resp B/P (MAP) Pulse Ox O2 Delivery O2 Flow Rate FiO2 10/04/18 08:25 Room Air 10/04/18 06:00 98.4 66 18 146/88 (107) 92 98.4 10/03/18 06:30 2.0 Physical Exam Hasn't been OOB. Toes with good cap refill, good AROM (no detectable motor deficit), decreased sensation is unchanged from yesterday (probable nerve traction injury), pulses palpable, slight diffuse swelling persists. Labs Laboratory Tests Test 10/03/18 09:20 10/04/18 04:05 Hemoglobin 13.0 g/dL (13.0-17.5) 13.0 g/dL (13.0-17.5) Hematocrit 40.7 % (39.0-53.0) 39.3 % (39.0-53.0) Mean Corpuscular Hemoglobin Concent 32 g/dL (31-37) 33 g/dL (31-37) Laboratory Tests Test 10/03/18 09:20 10/04/18 04:05 Hemoglobin 13.0 g/dL (13.0-17.5) 13.0 g/dL (13.0-17.5) Hematocrit 40.7 % (39.0-53.0) 39.3 % (39.0-53.0) Mean Corpuscular Hemoglobin Concent 32 g/dL (31-37) 33 g/dL (31-37) Assessment Assessment POD 2 after posterior knee mass excision which required popliteal artery repair Plan Plan of Care Hasn't been OOB yet. Plan PT today for ambulation. Discharge planning for tomorrow if OK with vascular. Continue daily aspirin. Pathology pending, probably won't be available until next week. SABA VASQUEZ MD October 04, 2018 08:44
--- NOTE | 2018-10-04 09:08 | PATHOLOGY ---
[facility] Accession Number: [id number] . 01 Material submitted: . knee - MASS POSTERIOR KNEE . 01 Clinical history: . Left knee loose body . 02 Diagnosis: Segments of bone, fibroadipose, and skeletal muscle tissue, left posterior knee mass excision: - Osseous loose body and adjacent hematoma with surrounding scarring containing hemosiderin-laden macrophages. (JPM:german instructor; 10/03/2018) MBR/10/03/2018 . 02 Comment: There is no evidence of malignancy. (JPM:vandana; 10/03/2018) . 02 Electronically signed: . Gallo Mueller MD, Pathologist NPI- [id number] . 01 Gross description: . The specimen is received in formalin, labeled "Kristopher Douglass, mass posterior knee", are multiple irregular fragment of dark brown hemorrhagic, indurated tissues measuring 6.7 x 6.0 x 1.4 cm in aggregate. The largest fragment consist of a possible rajput-yellow bone. Oracle Database Architect tissue is submitted in A1-A2. (A1 = bone after decalcification) ([facility]; 10/02/2018) SHS/SHS . 02 Pathologist provided ICD-10: M23.42 . 02 CPT . 432370, [id number] Specimen Comment: A courtesy copy of this report has been sent to Specimen Comment: [phone], . Specimen Comment: Report sent to / DR ABEBE Performed at: [address] [facility] [address], [place] [id number] MD Zacarias Pennington MD Phone: [phone] Performed at: 02 [facility] [address] [place], [place] [id number] MD Gallo Mueller MD Phone: [phone]
[2018-10-04] MEDS: IV NORMAL SALINE 1000ML BAG 1,000 ML IV SCH (11:03)
--- NOTE | 2018-10-04 13:48 | PDOC ---
Provider Note Provider Note Vascular S: Pt seen and examined in his hospital bed POD #2 s/p left popliteal artery repair by Dr Murphy at the time of posterior approach to popliteal fossa mass resection by Orthopedics He c/o some numbness to the left foot, unchanged from surgical procedure. O: Awake and alert VSS afebrile Left leg dressing removed: incision is C/D/I no hematoma 2+ PT and 1+ DP pulse all 4 compartments are totally soft without any pain on firm compression no pain on passive dorsiflexion of the foot He has strong dorsiflexion and plantarflexion of the foot / ankle and moves the toes to command. no foot drop A/P: Doing well s/p left pop artery repair, palpable distal PT Foot is numb -- there is no ischemia and no clinical evidence of compartment syndrome I expect most likely a traction injury to the nerve this should improve over time. Activity as tolerated and directed by Ortho daily aspirin Follow up with Dr. Murphy in 2-3 weeks [phone] September demarcus./c when ok with Ortho LAZARA TYLER APRN October 04, 2018 13:48
[2018-10-04 18:12] VITALS: BP 124/88
[2018-10-04] MEDS: TAMSULOSIN 0.4 MG CAP.ER.24H. PO SCH (20:55)
[2018-10-04] MEDS: ZOLPIDEM 5 MG TABLET. PO PRN (23:01)
[2018-10-05] MEDS: oxyCODONE/APAP 10/325 1 TAB TABLET PO PRN ×4 (01:47→13:20)
[2018-10-05 04:40] LABS: HEMOGLOBIN 12.8 g/dL (13.0-17.5)
[2018-10-05 06:20] VITALS: BP 115/72
[2018-10-05] MEDS: FLUTICASONE 50MCG/NASAL SPRAY 16GM BOTTLE. NS SCH (09:00)
[2018-10-05] MEDS: guaiFENesin DM 600/30MG 1 TAB TAB.ER.12H PO SCH (09:11)
[2018-10-05] MEDS: buPROPion SR 100 MG TABLET.SA. PO SCH (09:11)
[2018-10-05] MEDS: ASPIRIN ENTERIC COATED 81 MG TABLET.DR. PO SCH (09:12)
[2018-10-05] MEDS: MELOXICAM 7.5 MG TABLET PO SCH (09:12)
[2018-10-05] MEDS: PANTOPRAZOLE 40 MG TABLET.DR. PO SCH (09:12)
[2018-10-05] MEDS: SENNOSIDES/DOCUSATE 8.6/50MG TABLET. PO SCH (09:15)
--- NOTE | 2018-10-05 11:01 | NUR ---
am care completed. shower completed rests in bed . stitches cleansed with chlor prep then telfa wrapped with manuel. posterior calf remains bruised. he foot remains warm to touch with good dorsalis pulse strong and regular. left foot remains tingly
[2018-10-05] MEDS: IV NORMAL SALINE 1000ML BAG 1,000 ML IV SCH (11:03)
--- NOTE | 2018-10-05 11:06 | PDOC ---
PROGRESS NOTES Subjective Subjective has been up with therapy. Swelling improving Objective Vital Signs Vital Signs Date Time Temp Pulse Resp B/P (MAP) Pulse Ox O2 Delivery O2 Flow Rate FiO2 10/05/18 08:00 Room Air 10/05/18 07:15 20 10/05/18 06:20 97.5 58 115/72 (86) 97.5 10/04/18 18:12 95 10/03/18 06:30 2.0 Physical Exam Swelling improved, slight swelling persists. Good pulse and cap refill. Sensory still decreased, motor still seems normal. Labs Laboratory Tests Test 10/04/18 04:05 10/05/18 04:30 Hemoglobin 13.0 g/dL (13.0-17.5) 12.8 g/dL (13.0-17.5) Hematocrit 39.3 % (39.0-53.0) 39.0 % (39.0-53.0) Mean Corpuscular Hemoglobin Concent 33 g/dL (31-37) 33 g/dL (31-37) Laboratory Tests Test 10/05/18 04:30 Hemoglobin 12.8 g/dL (13.0-17.5) Hematocrit 39.0 % (39.0-53.0) Mean Corpuscular Hemoglobin Concent 33 g/dL (31-37) Assessment Assessment POD#3 after loose body excision posterior knee and arterial repair Plan Plan of [facility] today. Continue ASA 81 mg daily. SABA VASQUEZ MD October 05, 2018 11:06
--- NOTE | 2018-10-05 11:08 | PDOC3 ---
Discharge Summary Visit Information Date of Admission: October 02, 2018 Date of Discharge: October 05, 2018 Admitting Diagnosis: loose body left knee Final Diagnosis loose body left knee arterial injury Brief Hospital Course Allergies Allergies Coded Allergies Type Severity Reaction Last Updated Verified No Known Medication Allergies Allergy Unknown 07/12/18 Yes adhesive tape Adverse Reaction Intermediate Rash 07/12/18 Yes Vital Signs Vital Signs Date Time Temp Pulse Resp B/P (MAP) Pulse Ox O2 Delivery O2 Flow Rate FiO2 10/05/18 08:00 Room Air 10/05/18 07:15 20 10/05/18 06:20 97.5 58 115/72 (86) 97.5 10/04/18 18:12 95 Lab Results Laboratory Tests Test 10/04/18 04:05 10/05/18 04:30 Hemoglobin 13.0 g/dL (13.0-17.5) 12.8 g/dL (13.0-17.5) Hematocrit 39.3 % (39.0-53.0) 39.0 % (39.0-53.0) Mean Corpuscular Hemoglobin Concent 33 g/dL (31-37) 33 g/dL (31-37) Laboratory Tests Test 10/05/18 04:30 Hemoglobin 12.8 g/dL (13.0-17.5) Hematocrit 39.0 % (39.0-53.0) Mean Corpuscular Hemoglobin Concent 33 g/dL (31-37) Brief Hospital Course 68 year old with large loose body posterior left knee. The patient underwent total knee arthroplasty under general anesthesia the day of admission. Arterial perforation intraoperatively required repair by Vascular surgery. Perioperative antibiotics and DVT prophylaxis were used. ASA for postop anticoagulation of repair. Postoperatively physical therapy and case management were consulted. The patient progressed and is stable for discharge. Discharge Information Condition at Discharge: Stable Follow Up: Weeks Disposition/Orders: D/C to Home Scheduled Bupropion Hcl (Bupropion Hcl Sr), 200 MG PO BID, (Reported) Esomeprazole Magnesium (Nexium Capsule), 40 MG PO DAILYAC, (Reported) Fluticasone Propionate (Flonase Allergy Relief), 2 SPRAYS NS DAILY, (Reported) Guaifenesin/Dextromethorphan (Mucinex Dm Er 600-30 Mg Tablet), 1 EACH PO BID, (Reported) Modafinil (Provigil), 100 MG PO DAILY, (Reported) Nabumetone (Nabumetone), 750 MG PO BID, (Reported) Tamsulosin Hcl (Tamsulosin Hcl), 0.8 MG PO HS, (Reported) Scheduled PRN Oxycodone Hcl (Oxycodone Hcl), 10 MG PO PRN Q6HRS PRN for PAIN, (Reported) Oxycodone/Apap 10-325 (Percocet 10-325 Mg Tablet ), 1-2 TAB PO PRN Q4HRS PRN for MODERATE PAIN Miscellaneous Medications Aspirin (Aspirin), 81 MG PO, (Reported) Patient Instructions Patient Instructions Patient Instructions Continue to WBAT with walker. Follow up in 10-[address] Shields Continue aspirin 81 mg daily May get incision wet in shower starting MondayOctober 09. SABA SHIELDS MD October 05, 2018 11:08
[2018-10-05] MEDS ORDERED: OXYC1TAB22 PO (11:11)
[2018-10-05 12:43] VITALS: BP 129/87
--- NOTE | 2018-10-05 15:15 | NUR ---
reviewed written discharge orders with patient and . script given to them along with f/u appt with Dr. Shields and Dr. Murphy. instructed on dressing change; verbalized understanding. dismissed to home with
== END 2018-10-05 15:20 | disposition home or self-care (01) | DRG 488 ==
LOC: SURG 05:54 → 4 SOUTHEST 11:43
PROVIDERS: ADMIT Orthopaedic Surgery; ATTEND Orthopaedic Surgery
PROC: 0SCD0ZZ Extirpation of Matter from Left Knee Joint, Open Approach (ICD-10-PCS; principal; 2018-10-02 07:30)
PROC: 04UN0KZ Supplement Left Popliteal Artery with Nonautologous Tissue Substitute, Open Approach (ICD-10-PCS; 2018-10-02 07:30)
DX: M23.42 Loose body in knee, left knee (principal); S85.092A Other specified injury of popliteal artery, left leg, initial encounter; I10 Essential (primary) hypertension; K21.9 Gastro-esophageal reflux disease without esophagitis; Z96.652 Presence of left artificial knee joint; F32.9 Major depressive disorder, single episode, unspecified; Z82.3 Family history of stroke; Z83.3 Family history of diabetes mellitus
CPT/HCPCS: 36415; 85014; 85018; 85025; 85610; 85730; 86850; 86900; 86901; 88305; 88311; A7015; C1757; J0171; J0360; J0690; J0696; J0780; J1100; J1644; J1885; J2001; J2250; J2270; J2405; J2704; J2710; J2795; J3010; J3490; J7030; J7040; 97116; 97150; 97530; 97535; A4461

== ENCOUNTER → 2021-05-17 | Outpatient (CLI) | payer MEDICARE ==
[~2021-05-17] MED LIST changes: -BUPR200T PO; +BUPR200T3 PO; +GADOTERATE 7.5 MMOL/15ML VIAL. IVP ONE; +METH-562 PO; -METH750T2 PO; -NABU750T PO; +NABU750T11 PO; -OMEP20CA10 PO; +OMEP20CA16 PO; -ROPI0.5T2 PO; +ROPI0.5T4 PO
--- NOTE | 2021-05-17 15:34 | KCIC ---
EXAM: Lumbar spine MRI without and with contrast. HISTORY: Radiculopathy. Back pain. TECHNIQUE: Multiplanar, multisequence magnetic resonance imaging of the lumbar spine was performed wi thout and with contrast. COMPARISON: CT myelogram dated 06/11/2018. MRI dated 05/16/2018. FINDINGS: There is minimal lumbar scoliosis. There is 3 mm grade 1 anterolisthesis of L3 on L4. There is degenerative endplate remodeling with disc space narrowing, osteophytosis and Schmorl's node form ation primarily at L4-L5 and L5-S1. The conus terminates at L1. There is no acute or subacute fractur e. There is no suspicious osseous lesion. At L1-L2, there is no stenosis. At L2-L3, there is no stenosis. At L3-L4, there is a disc bulge and endplate remodeling. There is severe bilateral facet arthropathy. There is hypertrophy of the ligamentum flavum. There are left hemilaminectomy changes. There is grad e 1 anterolisthesis. There is mild right and minimal left foraminal stenosis. There is mild central c anal stenosis. At L4-L5, there is a shallow broad-based right lateral recess to foraminal disc protrusion superimpos ed on a disc bulge and endplate osteophytosis. There is moderate bilateral facet arthropathy. There i s partial laminectomy changes. There is mild bilateral foraminal stenosis. There is mild central staci l stenosis and effacement of the right lateral recess. At L5-S1, there are bilateral foraminal disc protrusions and osteophyte complexes superimposed on a d isc bulge and endplate remodeling. There are laminectomy changes. There is mild right and moderate le ft foraminal stenosis. IMPRESSION: 1. Multilevel degenerative change involving the lumbar spine, described in detail above. This results in mild right and minimal left foraminal and mild central canal stenosis at L3-L4, mild bilateral fo raminal and central canal stenosis and effacement of the right lateral recess at L4-L5, and mild righ t and moderate left foraminal stenosis at L5-S1. The degenerative changes have slightly increased at L3-L4 and L4-L5 compared to the prior exam. 2. Laminectomy and partial laminectomy changes at the lower lumbar levels, described above. Electronically signed by: Марина Li MD (05/17/2021 3:32 PM) [id number]
== END ==
LOC: KCIC MRI 10:17
PROVIDERS: ATTEND Neurological Surgery
DX: M47.26 Other spondylosis with radiculopathy, lumbar region (principal); M51.27 Other intervertebral disc displacement, lumbosacral region; M48.07 Spinal stenosis, lumbosacral region; M48.8X6 Other specified spondylopathies, lumbar region; M43.16 Spondylolisthesis, lumbar region; M51.47 Schmorl's nodes, lumbosacral region; M25.78 Osteophyte, vertebrae; Z98.890 Other specified postprocedural states
CPT/HCPCS: 72158; 82565; A9575

== ENCOUNTER → 2021-06-16 | Outpatient (CLI) | payer MEDICARE ==
[~2021-06-16] MED LIST changes: +CYAN25003 SL; -GADOTERATE 7.5 MMOL/15ML VIAL. IVP ONE; +MELA10TA2 PO; +ROPI1TAB4 PO
--- NOTE | 2021-06-16 12:58 | PDOC1 ---
INITIAL PAIN CONSULT DATE OF SERVICE: DOS: DATE: 06/16/21 TIME: 12:51 CHIEF COMPLAINT: Chief Complaint: Low back and bilateral lower extremity pain HISTORY OF PRESENT ILLNESS: 70-year-old male presents with history of pain low back bilateral lower extremities for many years status post lumbar laminectomies x5. Patient reports his most recent surgery was L3-4 on the left decompression in 2019. Patient reports he has significant pain although the surgery is not helped the pain keeps returning in the low back and bilateral lower extremities now in distribution of the low back posterior gluteus posterior thighs posterior calves posterior ankles and feet worse with walking standing changing positions better with sitting or laying down but still awakening from sleep 2-3 times a night patient reports it does not affect his bowel bladder control but does affect his ability to walk fairly significantly although he is not use any assistive devices. Patient reports that he has had physical therapy and has had chiropractic treatment the Active treatment helps slightly he is doing exercises currently and does them daily is taking oxycodone 10 mg which does decrease the pain takes his normally 5 times a day on most days. Patient reports pain is constant sharp in the back shooting in the legs essentially equal right and left burning and cramping in the low back as well patient rates his disability rating 0-10 10 being the worst is a 10 with family house possibilities recreation social activity sexual behavior and self-care activities. Patient have a myelogram with CT follow-up showing multilevel degenerative changes with mild right and minimal left foraminal and central canal stenosis at L3-4 with mild bilateral foraminal and central canal stenosis and effacement of the right lateral recess at L4-5 and mild right and moderate left foraminal stenosis at L5-S1. Patient reports no complete loss of motor function but significant fatigability of both lower extremities with any activity. PAST MEDICAL HISTORY: PMH: Arthritis, hearing loss, squamous cell skin cancer, depression PREVIOUS SURGERIES: Past Surgical Hx: Lumbar laminectomies x5 right knee surgery x4 left popliteal artery repair, left knee surgery x2 right hand surgery CURRENT MEDICATIONS: Current Meds: Active Scripts Medications Dose Route/Sig Max Daily Dose Days Date Category Dose Instructions Percocet 10-325 Mg Tablet (Oxycodone/Acetaminophen) 1 Each Tablet 1-2 Tab PO PRN Q4HRS PRN 14 10/05/18 Rx Take one or two tablets by mouth, every 4 hours as needed for pain Nexium Capsule (Esomeprazole Magnesium) 40 Mg Capsule.dr 40 Mg PO DAILYAC 09/28/18 Reported Mucinex Dm Er 600-30 Mg Tablet (Guaifenesin/Dextromethorphan) 1 Each Tab.er.12h 1 Each PO BID 09/28/18 Reported Provigil (Modafinil) 100 Mg Tablet 100 Mg PO DAILY 09/28/18 Reported Aspirin 81 Mg Tab.chew 81 Mg PO DAILY08 MDD 81mg 05/16/18 Reported Tamsulosin Hcl 0.4 Mg Cap.er.24h 0.8 Mg PO HS 09/05/17 Reported Flonase Allergy Relief (Fluticasone Propionate) 9.9 Ml [place].susp 2 Sprays NS DAILY 09/05/17 Reported Bupropion Hcl Sr (Bupropion Hcl) 200 Mg Tablet.er 200 Mg PO BID 11/16/15 Reported ALLERGIES; Allergies: Coded Allergies: No Known Medication Allergies (Verified Allergy, Unknown, 07/12/18) adhesive tape (Verified Adverse Reaction, Intermediate, Rash, 07/12/18) FAMILY HISTORY: Family Hx: No major medical problems or conditions that he is aware of. SOCIAL HISTORY: Social Hx: Patient is under alcohol does not smoke or use any illegal illicit or recreational drugs is lives with his spouse lives locally in [place], [place] REVIEW OF SYSTEMS: ROS: Positive for those items mentioned in history of present illness, all systems are reviewed, otherwise negative ,and are complete full and well-documented on patient's chart. PHYSICAL EXAM: VS: Blood pressure is 155/104 pulse 101 respirations 16 temperature 98.2 F height is 6 foot 5 inches weight is 253 pounds PE: PHYSICAL EXAMINATION: GENERAL: The patient is awake, alert, oriented, appropriate, very pleasant in demeanor HEENT: Shows normocephalic, atraumatic. Extraocular movements are intact and symmetrical. Oral cavity: Mucous membranes moist and pink. NECK: Shows anterior throat supple without palpable lymphadenopathy noted. Swallow reflex is symmetrical. CHEST: Shows normal on inspection. Breath sounds are clear bilaterally, distant but no rales rhonchi or wheezes. HEART: Shows S1, S2 clear. No murmurs auscultated. ABDOMEN: Soft, nontender, nondistended. No palpable organomegaly is noted. BACK: Shows spine grossly in the midline. Normal-appearing cervical lordotic curvature. There is slightly increased thoracic kyphosis, some moderate flattening of the lumbar lordotic curvature, with well-healed surgical scarring noted. Lumbar paraspinous muscles show symmetrical on inspection, on palpation shows some moderate tenderness diffusely throughout the upper, middle and lower distribution of the paraspinous muscles bilaterally and also into the lower thoracic paraspinous musculature, firm and tender, but without specific trigger points, without radiation of pain. The patient has good rotational motion of the lumbar spine, both laterally as well as extension and flexion without significant difficulty. No tenderness over the spinous processes, sacrum or sacroiliac regions. EXTREMITIES: Lower extremities show deep tendon reflexes 1+ in the patellar and tendo calcaneus tendons. Motor exam is 4 on a scale of 5 with right dorsiflexion, extension, quadriceps and hamstring flexion and 4/5 on the left. Peripheral pulses are 1+ posterior tibial. No peripheral edema is noted bilaterally. Lower extremities are warm and dry to touch, equal in color and appearance. SKIN: Shows warm and dry, good turgor. No edema. No sores, rashes or bruising throughout. IMPRESSION: Impression: 70-year-old male with long history of low back bilateral lower extremity pain status post lumbar laminectomy x5 CT myelogram as noted Arthritis Hearing loss History of skin cancer Plan: Options were discussed with patient including conservative medical managements physical therapies and interventional techniques. Patient like to pursue interventional techniques as he is currently doing physical therapies and chiropractic treatment as well as oral analgesics. We discussed a caudal approach epidural steroid injection today with fluoroscopic guidance using description as well as anatomical models described the procedure. Risks were discussed including but not limited to: Bleeding, infection, possibility of epidural hematoma and subsequent neurological compromise, dural puncture, headaches, spinal cord and/or nerve damage, side effects of steroid medication, and poor results regarding pain control. Patient understands and wished to proceed. Patient will return to the clinic in approximately 2 weeks for follow- up, was counseled as to return appointment, activity level, and side effects to be aware of. Also gave patient information regarding spinal cord stimulation he would like to look into this further for his own edification. Procedure is lumbar epidural steroid injection under local anesthetic using sterile prep and drape at the caudal level using C-arm fluoroscopic guidance in both AP and lateral views medications injected is 120 mg Depo-Medrol +10mL preservative-free normal saline and 2 mL contrast- condition at discharge is stable patient tolerated procedure well had no complications. SHABANA HOPKINS MD Jun 16, 2021 12:58
--- NOTE | 2021-06-16 12:59 | PDOC4 ---
Procedure Note: ICD 10 Code: ICD 10 Code: M54.17 M51.87 M48.07 M96.1 Procedure Note: Patient was consented for caudal approach epidural steroid injection fluoroscopic guidance. Risks were discussed including but not limited to: Bleeding, infection, possibility of epidural hematoma and subsequent neurological compromise, dural puncture, headaches, spinal cord and/or nerve damage, side effects of steroid medication, and poor results regarding pain control. Patient understands and wished to proceed. Procedure is lumbar epidural steroid injection under local anesthetic using sterile prep and drape at the caudal level using C-arm fluoroscopic guidance in both AP and lateral views medications injected is 120 mg Depo-Medrol +10mL preservative-free normal saline and 2 mL contrast- condition at discharge is stable patient tolerated procedure well had no complications. SHABANA HOPKINS MD Jun 16, 2021 12:59
== END | disposition home or self-care (01) ==
LOC: PNCL 11:28
PROVIDERS: ATTEND Anesthesiology
DX: M51.17 Intervertebral disc disorders with radiculopathy, lumbosacral region (principal); M48.07 Spinal stenosis, lumbosacral region; M96.1 Postlaminectomy syndrome, not elsewhere classified; I10 Essential (primary) hypertension; G47.30 Sleep apnea, unspecified; K21.9 Gastro-esophageal reflux disease without esophagitis; M19.90 Unspecified osteoarthritis, unspecified site; F32.9 Major depressive disorder, single episode, unspecified; Z85.828 Personal history of other malignant neoplasm of skin; Z87.891 Personal history of nicotine dependence; Z79.899 Other long term (current) drug therapy; Z98.890 Other specified postprocedural states; Z82.49 Family history of ischemic heart disease and other diseases of the circulatory system; Z83.3 Family history of diabetes mellitus
CPT/HCPCS: 62323

== ENCOUNTER → 2021-07-21 | Outpatient (CLI) | payer MEDICARE ==
[~2021-07-21] MED LIST changes: +DEXAMETHASONE PRES.FREE 10 MG/ML VIAL. ONE; +IOHEXOL 180 MG/ML 10 ML VIAL. ONE
--- NOTE | 2021-07-21 12:12 | PDOC ---
Progress Note - Pain Clinic Date of Service: DOS: DATE: 07/21/21 TIME: 12:08 Diagnosis: Dx: Lumbar to colopathy with lumbar degenerative disc disease lumbar spinal stenosis and lumbar postlaminectomy syndrome History or Present Illness: HPI: 71-year-old male returns is post caudal epidural steroid injection last seen June 16, 2021. Patient did very well initially that 40% improvement overall for the first month patient reports that the pain is returning now but has a new pain in the anterior ankle on the top of the foot which is not there prior previously patient reports he has not had any injury or accident to cause a new pain the pain in the back and the leg is much better but still significant radiating the posterior gluteus posterior thigh posterior calf on the right side but now has new pain in the top of the ankle and foot on the right side as well worse with walking standing change positions patient reports the pain is anywhere from a 7-10 on scale 10 is worst on average and is a 7 at its least patient reports is a 7 today patient scribes sharp and dull in the back shooting the leg on the right side burning and aching with aching new pain in the top of the foot on the right side again worse with the pain in the leg as well as worse with walking standing change positions patient reports it can be severe and unbearable at times with standing patient reports is better with sitting or laying down wakes him from sleep most nights at least once or twice but not every night. Patient reports no bowel or bladder incontinence no loss of motor function but significant fatigability of the right lower extremity. Physical Exam: VS: Blood pressure is 138/82 pulse 51 respirations 18 temperature 98.2 F weight is 257 pounds. PE: PHYSICAL EXAMINATION: GENERAL: The patient is awake, alert, oriented, appropriate, very pleasant in demeanor HEENT: Shows normocephalic, atraumatic. Extraocular movements are intact and symmetrical. NECK: Shows anterior throat supple without palpable lymphadenopathy noted. Swallow reflex symmetrical. CHEST: Shows normal on inspection. Breath sounds are clear bilaterally, no r ales rhonchi wheezes auscultated. HEART: Shows S1, S2 clear. No murmurs auscultated. ABDOMEN: Soft, nontender, nondistended. No palpable organomegaly is noted. No rebound or guarding demonstrated. BACK: Shows spine grossly in the midline. Normal-appearing cervical lordotic curvature. There is slightly increased thoracic kyphosis, some flattening of the lumbar lordotic curvature, with well-healed surgical scarring noted. Lumbar paraspinous muscles show symmetrical on inspection, on palpation shows some moderate tenderness diffusely throughout the upper, middle and lower distribution of the paraspinous muscles without specific trigger points, without radiation of pain. The patient has good rotational motion of the lumbar spine, both laterally as well as extension and flexion without significant difficulty. No tenderness over the spinous processes, sacrum or sacroiliac regions. EXTREMITIES: Lower extremities show deep tendon reflexes 1+ in the patellar and tendo calcaneus tendons. Motor exam is 4 on a scale of 5 with right dorsiflexion, extension, quadriceps and hamstring flexion and 4/5 on the left. Peripheral pulses are 1+ posterior tibial. No peripheral edema is noted bilaterally. Lower extremities are warm and dry to touch, equal in color and appearance. SKIN: Shows warm and dry, good turgor. No edema. No sores, rashes or bruising throughout. Procedure: Procedure: Options were discussed with patient. Patient's old chart was reviewed his his current medication regimen updated current review of systems updated today as well. We will proceed with a caudal approach epidural steroid injection today with fluoroscopic guidance. Risks were discussed including but not limited to: Bleeding, infection, possibility of epidural hematoma and subsequent neurological compromise, dural puncture, headaches, spinal cord and/or nerve damage, side effects of steroid medication, and poor results regarding pain control. Patient understands and wished to proceed. Patient will return to clinic in approximately 2 weeks for follow-up, was counseled as to return appointment, activity level, and side effects to be aware of. Medication Injected: Med Injected: Procedure is lumbar epidural steroid injection under local anesthetic using sterile prep and drape at the caudal level using C-arm fluoroscopic guidance in both AP and lateral views medications injected is 20 mg dexamethasone plus 10mL preservative-free normal saline and 2 mL contrast- condition at discharge is stable patient tolerated procedure well had no complications. Condition at Discharge: Condition at Discharge: Condition at discharge stable, paced tolerated procedure well and had no complications. SHABANA HOPKINS MD Jul 21, 2021 12:12
--- NOTE | 2021-07-21 12:13 | PDOC4 ---
Procedure Note: ICD 10 Code: ICD 10 Code: M54.17 M51.87 M4 8.07 M 96.1 Procedure Note: Patient was consented for caudal epidural steroid injection with fluoroscopic guidance. Risks were discussed including but not limited to: Bleeding, infection, possibility of epidural hematoma and subsequent neurological compromise, dural puncture, headaches, spinal cord and/or nerve damage, side effects of steroid medication, and poor results regarding pain control. Patient understands and wished to proceed. Procedure is lumbar epidural steroid injection under local anesthetic using sterile prep and drape at the caudal level using C-arm fluoroscopic guidance in both AP and lateral views medications injected is 20 mg dexamethasone plus 10mL preservative-free normal saline and 2 mL contrast- condition at discharge is stable patient tolerated procedure well had no complications. SHABANA HOPKINS MD Jul 21, 2021 12:13
== END | disposition home or self-care (01) ==
LOC: PNCL 11:22
PROVIDERS: ATTEND Anesthesiology
DX: M51.16 Intervertebral disc disorders with radiculopathy, lumbar region (principal); M48.061 Spinal stenosis, lumbar region without neurogenic claudication; M96.1 Postlaminectomy syndrome, not elsewhere classified; I10 Essential (primary) hypertension; G47.30 Sleep apnea, unspecified; K21.9 Gastro-esophageal reflux disease without esophagitis; M19.90 Unspecified osteoarthritis, unspecified site; F32.9 Major depressive disorder, single episode, unspecified; Z85.828 Personal history of other malignant neoplasm of skin; Z87.891 Personal history of nicotine dependence; Z98.890 Other specified postprocedural states; Z88.8 Allergy status to other drugs, medicaments and biological substances
CPT/HCPCS: 62323; J1100; Q9965

== ENCOUNTER → 2021-08-04 | Outpatient (CLI) | payer MEDICARE ==
--- NOTE | 2021-08-04 10:34 | PDOC ---
Progress Note - Pain Clinic Date of Service: DOS: DATE: 08/04/21 TIME: 10:31 Diagnosis: Dx: Lumbar radiculopathy with lumbar degenerative disc disease lumbar spinal stenosis and lumbar postlaminectomy syndrome History or Present Illness: HPI: 71-year-old male returns for follow-up status post lumbar epidural steroid injection with caudal approach x2. Patient reports about 40% improvement overall patient reports the pain is returning now has new pain in the left lower extremity and his primary was always on the right side now is having some pain in the left side he is going to the hip and into the thigh not as far down as it is on the right side goes all the way to the calf into the foot the patient reports still better with the injection but not lasting more than about 3 weeks patient reports it is a sharp pain in the back shooting in the legs tingling burning and stabbing more stabbing in the left cheek now than the right but also radiating constant can be severe and unbearable in the lower right lower extremity as well. Patient reports a 10 on scale 10 at worst least and average is a 10 today patient reports it is worse with walking standing change positions wakes him from sleep about once a night no bowel or bladder control issues but some urgency with urination only. Patient reports significant fatigability with lower extremities and more so now in the left leg as well. Physical Exam: VS: Blood pressure is 150/93 pulse 107 respirations 18 temperature 98.7 F height is 6 foot 5 inches weight is 249 pounds. PE: PHYSICAL EXAMINATION: GENERAL: The patient is awake, alert, oriented, appropriate, very pleasant in demeanor HEENT: Shows normocephalic, atraumatic. Extraocular movements are intact and symmetrical. Oral cavity: Mucous membranes moist and pink. Dentition is intact. NECK: Shows anterior throat supple without palpable lymphadenopathy noted. Swallow reflex symmetrical. CHEST: Shows normal on inspection. Breath sounds are clear bilaterally, no rales or rhonchi. HEART: Shows S1, S2 clear. No murmurs auscultated. ABDOMEN: Soft, nontender, nondistended. No palpable organomegaly is noted. BACK: Shows spine grossly in the midline. Normal-appearing cervical lordotic curvature. There is slightly increased thoracic kyphosis, some flattening of the lumbar lordotic curvature with well-healed surgical scarring noted. Lumbar paraspinous muscles show symmetrical on inspection, on palpation shows some moderate tenderness diffusely throughout the upper, middle and lower d istribution of the paraspinous muscles without specific trigger points, without radiation of pain. The patient has good rotational motion of the lumbar spine, both laterally as well as extension and flexion without significant difficulty. No tenderness over the spinous processes, sacrum or sacroiliac regions. EXTREMITIES: Lower extremities show deep tendon reflexes 1+ in the patellar and tendo calcaneus tendons. Motor exam is 4 on a scale of 5 with right dorsiflexion, extension, quadriceps and hamstring flexion and 4/5 on the left. Peripheral pulses are 1+ posterior tibial. No peripheral edema is noted bilaterally. Lower extremities are warm and dry.. SKIN: Shows warm and dry, good turgor. No edema. No sores, rashes or bruising throughout. Procedure: Procedure: Options discussed with patient. Patient's chart was reviewed his current medication regimen updated her review of systems updated today as well. We will proceed with a lumbar epidural steroid injection today translaminar approach L5- S1 with fluoroscopic guidance. Risks were discussed including but not limited to: Bleeding, infection, possibility of epidural hematoma and subsequent neurological compromise, dural puncture, headaches, spinal cord and/or nerve dam age, side effects of steroid medication, and poor results regarding pain control. Patient understands and wished to proceed. Patient will return to clinic in approximately 2 weeks for follow-up, was counseled as to return appointment, activity level, and side effect to be aware of. Medication Injected: Med Injected: Procedure is lumbar epidural steroid injection under local anesthetic using sterile prep and drape at the L5-S1 level using C-arm fluoroscopic guidance in both AP and lateral views medications injected is 20 mg dexamethasone +10mL preservative-free normal saline and 2 mL contrast- condition at discharge is stable patient tolerated procedure well had no complications. Condition at Discharge: Condition at Discharge: Condition at discharge stable, patient tolerated procedure well had no complications. SHABANA HOPKINS MD Aug 04, 2021 10:34
--- NOTE | 2021-08-04 10:35 | PDOC4 ---
Procedure Note: ICD 10 Code: ICD 10 Code: M5 4.17 M51. 87 M4 8.07 M 96.1 Procedure Note: Patient was consented for lumbar epidural steroid injection with fluoroscopic guidance. Risks were discussed including but not limited to: Bleeding, infection, possibility of epidural hematoma and subsequent neurological comprom ise, dural puncture, headaches, spinal cord and/or nerve damage, side effects of steroid medication, and poor results regarding pain control. Patient understands and wished to proceed. Procedure is lumbar epidural steroid injection under local anesthetic using sterile prep and drape at the L5-S1 level using C-arm fluoroscopic guidance in both AP and lateral views medications injected is 20 mg dexamethasone +10mL preservative-free normal saline and 2 mL contrast- condition at discharge is stable patient tolerated procedure well had no complications. SHABANA HOPKINS MD Aug 04, 2021 10:35
== END | disposition home or self-care (01) ==
LOC: PNCL 09:19
PROVIDERS: ATTEND Anesthesiology
DX: M51.17 Intervertebral disc disorders with radiculopathy, lumbosacral region (principal); M48.07 Spinal stenosis, lumbosacral region; M96.1 Postlaminectomy syndrome, not elsewhere classified; I10 Essential (primary) hypertension; K21.9 Gastro-esophageal reflux disease without esophagitis; G47.30 Sleep apnea, unspecified; F32.9 Major depressive disorder, single episode, unspecified; M19.90 Unspecified osteoarthritis, unspecified site; Z85.828 Personal history of other malignant neoplasm of skin; Z79.899 Other long term (current) drug therapy; Z98.890 Other specified postprocedural states; Z87.891 Personal history of nicotine dependence; Z88.8 Allergy status to other drugs, medicaments and biological substances
CPT/HCPCS: 62323; J1100; Q9965